=== PATIENT | female | born 1950 | race Caucasian/White ===

== ENCOUNTER 2017-05-15 18:13 | Inpatient (IN) | payer MEDICARE ==
[~2017-05-15] VITALS: Ht 152.4 cm; Wt 40.0 kg
[~2017-05-15 18:13] MED LIST: BENZ1TAB PO; DIAZ5 PO; FOLI1 PO; LURA40 PO; METH2.5 PO; PROZ20CA11 PO; TRAZ100 PO
[2017-05-15 19:21] VITALS: BP 102/71; PULSE 102; RESP 18; TEMP 98.1; O2SAT 100
[2017-05-15] MEDS ORDERED: SODIUM CHLOR 0.9% 1000 ML INJ 1,000 ML IV SCH ×3 (19:26→21:41)
[2017-05-15] MEDS ORDERED: PROPARACAINE HCL 0.5% OPHT SOLN 15 ML BTL EACH EYE ONE (19:30)
[2017-05-15] MEDS ORDERED: ONDANSETRON HCL 4 MG/2 ML VIAL IVP ONE (19:30)
[2017-05-15 19:42] VITALS: O2SAT 100
--- NOTE | 2017-05-15 19:45 | PD ---
HPI Chief Complaint: Abdominal Pain Time Seen by Provider: 19:25 Travel History International Travel<30 days: No Contact w/Intl Traveler<30days: No Traveled to known affect area: No History of Present Illness HPI 66-year-old female that presents to the ED via via ambulance for evaluation of hypotension and diarrhea as well as lower abdominal pain. Patient has had this for 3 weeks. Per patient she was sent to [facility] about 2 weeks ago and was released. She was told that she had colitis and she was given medications. Patient herself does not know what medication she was given and states that they're on the "list". She resides at an [facility]. She does have a significant history of anxiety as well as anorexia nervosa. She states the symptoms have not improved. She denies any lightheadedness or dizziness. Per patient she has been having also pain and discomfort to her right eye. Per patient she thinks that he has conjunctivitis. She states that she has some blurry vision as well with it. Denies any head injury or trauma. This is been going on for about a day. Patient follows with Dr. Pizarro. She is not really sure if she has follow-up with him outpatient. She states that her pain is 4 out of 10. On exam she is very anxious and asked for water and clothes. PFSH Past Medical History Arthritis: Yes Autoimmune Disease: Yes (RA) Bipolar Disorder: Yes Anxiety: Yes Depression: Yes Cancer: No Cardiovascular Problems: No Diabetes: No Diminished Hearing: No Endocrine: No Gastrointestinal Disorders: Yes (REFLUX) GERD: Yes Genitourinary: No Hepatitis: No Hiatal Hernia: No Hypertension: Yes Immune Disorder: No Musculoskeletal: Yes (ARTHRITIS) Neurologic: No Psychiatric: Yes Reproductive: No Respiratory: No Immunizations Current: Yes Migraines: Yes Schizophrenia: Yes Sickle Cell Disease: No Thyroid Disease: No ?: Not Menopausal: Yes : 1 Para: 0 Miscarriage: 1 Past Surgical History Abdominal Surgery: Yes (ABD. SX.?) AICD: No Gynecologic Surgery: Yes (VAG. PROLAPSE,) Hysterectomy: Yes Joint Replacement: No Neurologic Surgery: No Pacemaker: No Tonsillectomy: Yes Other Surgery: Yes (LYMPHADECTOMY IN 2007) Social History Alcohol Use: No Tobacco Use: No Substance Use: No Allergies-Medications (Allergen,Severity, Reaction): Coded Allergies: Sulfa (Sulfonamide Antibiotics) (Unverified Allergy, Severe, Itching, 03/31) prochlorperazine (Unverified Allergy, Severe, Restlessness, 03/31/17) acetaminophen (Unverified Allergy, Mild, NAUSEA, 03/31/17) aspirin (Unverified Allergy, Mild, NAUSEA, 03/31/17) oxycodone (Unverified Allergy, Mild, NAUSEA, 03/31/17) shellfish derived (Unverified Allergy, Unknown, 03/31/17) Reported Meds & Prescriptions Reported Meds & Active Scripts Active Reported Questran (Cholestyramine) 4 Gm/Dose Powd 4 Gm PO TID 1 level scoopful of powder contains 4 grams of cholestyramine. Apriso (Mesalamine) 0.375 Gm Caper 1.5 Gm PO DAILY Sertraline (Sertraline HCl) 50 Mg Tab 50 Mg PO DAILY Trazodone (Trazodone HCl) 50 Mg Tab 50 Mg PO HS Sumatriptan (Sumatriptan Succinate) 25 Mg Tab 25 Mg PO DAILY PRN If a satisfactory response has not been obtained at 2 hours, a second dose may be administered Ondansetron (Ondansetron HCl) 8 Mg Tab 4 Mg PO QID PRN Seroquel (Quetiapine Fumarate) 100 Mg Tab 100 Mg PO TID Naproxen 250 Mg Tab 250 Mg PO BID Mirtazapine 15 Mg Tab 15 Mg PO HS Folic Acid 0.8 Mg Tab 1,000 Mcg PO DAILY Diazepam 10 Mg Tab 10 Mg PO BID PRN Alendronate (Alendronate Sodium) 70 Mg Tab 70 Mg PO Q7D Tylenol (Acetaminophen) 325 Mg Tab 1,000 Mg PO BID PRN Review of Systems Except as stated in HPI: all other systems reviewed are Neg Physical Exam Narrative GENERAL: SKIN: Warm and dry. HEAD: Atraumatic. Normocephalic. EYES: Pupils equal and round 4 mm right-sided accommodation. Patient has conjunctival erythema noted as well as discharge coming from the right eye. No scleral icterus. No injection or drainage. ENT: No nasal bleeding or discharge. Mucous membranes pink and moist. Tongue is midline. No uvula deviation. NECK: Trachea midline. No JVD. CARDIOVASCULAR: Regular rate and rhythm. No murmurs, S3, S4. RESPIRATORY: No accessory muscle use. Clear to auscultation. Breath sounds equal bilaterally. GASTROINTESTINAL: Abdomen soft, non-tender, nondistended. Hepatic and splenic margins not palpable. MUSCULOSKELETAL: Extremities without clubbing, cyanosis, or edema. No obvious deformities. Full range of motion of the upper and lower extremities bilaterally. 2+ pulses bilaterally. NEUROLOGICAL: Awake and alert. No obvious cranial nerve deficits. Motor grossly within normal limits. Five out of 5 muscle strength in the arms and legs. Normal speech. PSYCHIATRIC: Appropriate mood and affect; insight and judgment normal. Data Data Last Documented VS Vital Signs Date Time Temp Pulse Resp B/P (MAP) Pulse Ox O2 Delivery O2 Flow Rate FiO2 05/15/17 19:42 100 Room Air 05/15/17 19:21 98.1 102 18 102/71 (81) Orders Orders Proparacaine 0.5% Opth Soln (Alcaine 0.5 (05/15/17 19:30) Complete Blood Count With Diff (05/15/17 19:26) Comprehensive Metabolic Panel (05/15/17 19:26) Lipase (05/15/17 19:26) Lactic Acid (05/15/17 19:26) Prothrombin Time / Inr (Pt) (05/15/17 19:26) Act Partial Throm Time (Ptt) (05/15/17 19:26) Urinalysis - C+S If Indicated (05/15/17 19:26) Iv Access Insert/Monitor (05/15/17 19:26) Ecg Monitoring (05/15/17 19:26) Oximetry (05/15/17 19:26) Ondansetron Inj (Zofran Inj) (05/15/17 19:30) Sodium Chlor 0.9% 1000 Ml Inj (Ns 1000 M (05/15/17 19:26) C Diff Toxin Pcr (05/15/17 19:33) Sodium Chlor 0.9% 1000 Ml Inj (Ns 1000 M (05/15/17 20:52) Metronidazole 500 Mg Inj (Flagyl 500 Mg (05/15/17 21:30) Labs Laboratory Tests Test 05/15/17 19:40 05/15/17 21:00 White Blood Count 7.4 TH/MM3 Red Blood Count 4.19 MIL/MM3 Hemoglobin 12.4 GM/DL Hematocrit 37.0 % Mean Corpuscular Volume 88.5 FL Mean Corpuscular Hemoglobin 29.5 PG Mean Corpuscular Hemoglobin Concent 33.4 % Red Cell Distribution Width 13.3 % Platelet Count 536 TH/MM3 Mean Platelet Volume 7.2 FL Neutrophils (%) (Auto) 60.4 % Lymphocytes (%) (Auto) 21.7 % Monocytes (%) (Auto) 13.6 % Eosinophils (%) (Auto) 3.3 % Basophils (%) (Auto) 1.0 % Neutrophils # (Auto) 4.5 TH/MM3 Lymphocytes # (Auto) 1.6 TH/MM3 Monocytes # (Auto) 1.0 TH/MM3 Eosinophils # (Auto) 0.2 TH/MM3 Basophils # (Auto) 0.1 TH/MM3 CBC Comment DIFF FINAL Differential Comment Prothrombin Time 10.8 SEC Prothromb Time International Ratio 1.0 RATIO Activated Partial Thromboplast Time 28.7 SEC Blood Urea Nitrogen 44 MG/DL Creatinine 1.84 MG/DL Random Glucose 94 MG/DL Total Protein 8.5 GM/DL Albumin 4.4 GM/DL Calcium Level 9.7 MG/DL Alkaline Phosphatase 114 U/L Aspartate Amino Transf (AST/SGOT) 30 U/L Alanine Aminotransferase (ALT/SGPT) 16 U/L Total Bilirubin 0.4 MG/DL Sodium Level 127 MEQ/L Potassium Level 3.7 MEQ/L Chloride Level 96 MEQ/L Carbon Dioxide Level 22.4 MEQ/L Anion Gap 9 MEQ/L Estimat Glomerular Filtration Rate 27 ML/MIN Lactic Acid Level 0.9 mmol/L Lipase 96 U/L MDM Medical Decision Making Medical Screen Exam Complete: Yes Emergency Medical Condition: Yes Medical Record Reviewed: Yes Interpretation(s) CBC & BMP Diagram 05/15/17 19:40 Total Protein 8.5 H, Albumin 4.4, Calcium Level 9.7, Alkaline Phosphatase 114, Aspartate Amino Transf (AST/SGOT) 30, Alanine Aminotransferase (ALT/SGPT) 16, Total Bilirubin 0.4 coags WNL Differential Diagnosis Conjunctivitis versus glaucoma versus viral illness versus diarrhea versus C. difficile versus hypotension versus anxiety Narrative Course 66-year-old female that presents to the ED for evaluation of abdominal pain with diarrhea as well as right eye discomfort. Patient was properly examined and was found to have signs and symptoms consistent with possible conjunctivitis. Unclear of the diarrhea. Possible C. difficile. Patient does reside in an [place]. I have requested the records from [facility]. Labs were ordered. Patient is given IV fluids. Labs and imaging showed acute kidney injury. I was able to get the report from [facility] and she had a CAT scan that showed possible obstruction but was found to not have an obstruction. Patient at the time refuse colonoscopy secondary to having a procedure done to her rectum and was told by her rectal surgeon that she cannot have any colonoscopies. She was discharged home. Labs here did show what appears to be acute kidney injury versus her BUN and creatinine drastically changed from April 28 at [facility]. BUN was 14 and creatinine was 0.69 on that day. Here he has drastically increased. Patient was given IV fluids. Patient is started on Flagyl for possible infectious colitis. Patient will be admitted to the hospital. My attending Dr. Adame evaluated the patient with me and agrees with plan. Case discussed with Dr. Rivera who agrees to admission. Diagnosis Primary Impression: Acute kidney injury Additional Impressions: Conjunctivitis Qualified Codes: B30.9 - Viral conjunctivitis, unspecified Diarrhea Qualified Codes: A09 - Infectious gastroenteritis and colitis, unspecified Admitting Information Admitting Physician Requests: Admit Nando Flaherty May 15, 2017 19:45
[2017-05-15 20:05] LABS: AUTOMATED NEUTROPHIL # 4.5 TH/MM3 (1.8-7.7); BASOPHIL # 0.1 TH/MM3 (0-0.2); EOSINOPHIL # 0.2 TH/MM3 (0-0.4); EOSINOPHIL % 3.3 % (0.0-4.0); HEMO FLAGS DIFF FINAL; LYMPH % 21.7 % (9.0-44.0); LYMPHOCYTE # 1.6 TH/MM3 (1.0-4.8); MEAN CELL VOLUME 88.5 FL (80.0-100.0); MEAN CORPUSCULAR HEMOGLOBIN 29.5 PG (27.0-34.0); MEAN CORPUSCULAR HGB CONC 33.4 % (32.0-36.0); MONO % 13.6 % (0.0-8.0); NEUT % 60.4 % (16.0-70.0); PLATELET COUNT 536 TH/MM3 (150-450); RED BLOOD COUNT 4.19 MIL/MM3 (4.00-5.30); RED CELL DISTRIBUTION WIDTH 13.3 % (11.6-17.2); WHITE BLOOD COUNT 7.4 TH/MM3 (4.0-11.0)
[2017-05-15 20:17] LABS: ALT (GPT) 16 U/L (10-53)
[2017-05-15 20:19] LABS: ALKALINE PHOSPHATASE 114 U/L (45-117); TOTAL BILIRUBIN ADULT 0.4 MG/DL (0.2-1.0)
[2017-05-15 20:26] LABS: ANION GAP 9 MEQ/L (5-15); AST (GOT) 30 U/L (15-37); BICARBONATE 22.4 MEQ/L (21.0-32.0); BLOOD UREA NITROGEN 44 MG/DL (7-18); CHLORIDE 96 MEQ/L (98-107); GLOMERULAR FILTRATION RATE 27 ML/MIN (>89); POTASSIUM 3.7 MEQ/L (3.5-5.1); SODIUM (NA) 127 MEQ/L (136-145)
[2017-05-15 20:30] LABS: APTT (PATIENT) 28.7 SEC (24.3-30.1); PROTHROMBIN TIME - PATIENT 10.8 SEC (9.8-11.6)
[2017-05-15] MEDS ORDERED: TYLE325T PO (20:53)
[2017-05-15] MEDS ORDERED: DIAZ10TA PO (20:53)
[2017-05-15] MEDS ORDERED: APRI0.372 PO (20:53)
[2017-05-15] MEDS ORDERED: NAPR250T PO (20:53)
[2017-05-15] MEDS ORDERED: SERT-132 PO (20:53)
[2017-05-15] MEDS ORDERED: SUMA25TA2 PO (20:53)
[2017-05-15] MEDS ORDERED: ONDA1TAB17 PO (20:53)
[2017-05-15] MEDS ORDERED: FOLI800T PO (20:53)
[2017-05-15] MEDS ORDERED: TRAZ50TA12 PO (20:53)
[2017-05-15] MEDS ORDERED: ALEN1TAB48 PO (20:53)
[2017-05-15] MEDS ORDERED: SERO100T PO (20:53)
[2017-05-15] MEDS ORDERED: QUES4POW2 PO (20:53)
[2017-05-15] MEDS ORDERED: MIRTA15 PO (20:53)
[2017-05-15] MEDS ORDERED: metroNIDAZOLE 500 MG INJ 100 ML IV ONE (21:30)
[2017-05-15] MEDS ORDERED: SODIUM CHLORIDE 0.9% FLUSH 10 ML FLUSH IV FLUSH PRN (21:45)
[2017-05-15] MEDS ORDERED: SENNOSIDES 8.6 MG TAB PO PRN (21:45)
[2017-05-15] MEDS ORDERED: MAGNESIUM HYDROXIDE SUSP 30 ML CUP PO PRN (21:45)
[2017-05-15] MEDS ORDERED: MORPHINE SULFATE 4 MG/ML INJ IV PUSH PRN ×2 (21:45)
[2017-05-15] MEDS ORDERED: LACTULOSE SYRUP 20 GM/30 ML CUP PO PRN (21:45)
[2017-05-15] MEDS ORDERED: BISACODYL 10 MG SUPP RECTAL PRN (21:45)
--- NOTE | 2017-05-15 21:49 | HHI.HP ---
[facility] Service [facility] Primary Care Physician Jenaro Pizarro MD Admission Diagnosis acute kidney injury, diarrhea, conjunctivitis Diagnoses: (1) Diarrhea Diagnosis: Principal (2) HARISH (acute kidney injury) Diagnosis: Principal (3) Hyponatremia Diagnosis: Principal (4) Anxiety Diagnosis: Principal (5) Conjunctivitis Diagnosis: Principal Travel History International Travel<30 Days: No Contact w/Intl Traveler <30 Da: No Traveled to Known Affected Are: No History of Present Illness This is a 66-year-old female with a PMH of Anxiety, Depression, Bipolar Disorder , Anorexia Nervosa, Rheumatoid Arthritis, GERD and Migraines who was sent to the ER from [facility] secondary to diarrhea x3 wks. Admitted to [facility] approx 2wks ago for similar symptoms, C Diff negative at that time, was to undergo EGD/ Colonoscopy however pt declined due to rectal prolapse s/p repair. Reports ongoing diarrhea w/ occasional nausea/vomiting. Decreased PO intake due to symptoms. Denies fever, chills or sick contacts. On arrival, BP 102/71, HR 102 , O2 sat 100% on RA, Afebrile. CBC essentially unremarkable. Na 127. Creatinine 1.84, produces 0.84 on 02/08/16. Per review of records, Creatinine 0.69 on 04/28/17 during recent admit. INR 1.0. S/p IVF and Flagyl IV in ER. C Diff pending. Review of Systems Except as stated in HPI: all other systems reviewed are Neg ROS: 14 point review of systems otherwise negative. Past Family Social History Past Medical History PMH: Anxiety, Depression, Bipolar Disorder, Anorexia Nervosa, Rheumatoid Arthritis, GERD and Migraines Past Surgical History PAST SURGICAL HISTORY: Abdominal Surgery, Hysterectomy, Vaginal Prolapse Bere Rectal Prolapse, Tonsillectomy Allergies: Coded Allergies: Sulfa (Sulfonamide Antibiotics) (Unverified Allergy, Severe, Itching, 03/31) prochlorperazine (Unverified Allergy, Severe, Restlessness, 03/31/17) acetaminophen (Unverified Allergy, Mild, NAUSEA, 03/31/17) aspirin (Unverified Allergy, Mild, NAUSEA, 03/31/17) oxycodone (Unverified Allergy, Mild, NAUSEA, 03/31/17) shellfish derived (Unverified Allergy, Unknown, 03/31/17) Family History PAST FAMILY HISTORY: Reviewed. No h/o DM or CAD Social History PAST SOCIAL HISTORY: Negative for alcohol, tobacco or drugs. Physical Exam Vital Signs Vital Signs Date Time Temp Pulse Resp B/P (MAP) Pulse Ox O2 Delivery O2 Flow Rate FiO2 05/15/17 19:42 100 Room Air 05/15/17 19:21 98.1 102 18 102/71 (81) 100 Physical Exam PE: GENERAL: Middle aged female in no acute distress, mildly anxious. HEENT: PERRLA, EOMI. No scleral icterus or conjunctival pallor. No lid lag or facial droop. Right eye drainage, +conjunctivitis. CARDIOVASCULAR: Regular rate and rhythm. No obvious murmurs to auscultation. No chest tenderness to palpation. RESPIRATORY: No obvious rhonchi or wheezing. Clear to auscultation. Breath sounds equal bilaterally. GASTROINTESTINAL: Abdomen soft, non-tender, nondistended. BS normal. MUSCULOSKELETAL: Extremities without clubbing, cyanosis, or edema. No obvious deformities. NEUROLOGICAL: Awake, alert and oriented x4. No focal neurologic deficits. Moving both upper and lower extremities spontaneously. Laboratory Laboratory Tests Test 05/15/17 19:40 05/15/17 21:00 White Blood Count 7.4 Red Blood Count 4.19 Hemoglobin 12.4 Hematocrit 37.0 Mean Corpuscular Volume 88.5 Mean Corpuscular Hemoglobin 29.5 Mean Corpuscular Hemoglobin Concent 33.4 Red Cell Distribution Width 13.3 Platelet Count 536 Mean Platelet Volume 7.2 Neutrophils (%) (Auto) 60.4 Lymphocytes (%) (Auto) 21.7 Monocytes (%) (Auto) 13.6 Eosinophils (%) (Auto) 3.3 Basophils (%) (Auto) 1.0 Neutrophils # (Auto) 4.5 Lymphocytes # (Auto) 1.6 Monocytes # (Auto) 1.0 Eosinophils # (Auto) 0.2 Basophils # (Auto) 0.1 CBC Comment DIFF FINAL Differential Comment Prothrombin Time 10.8 Prothromb Time International Ratio 1.0 Activated Partial Thromboplast Time 28.7 Blood Urea Nitrogen 44 Creatinine 1.84 Random Glucose 94 Total Protein 8.5 Albumin 4.4 Calcium Level 9.7 Alkaline Phosphatase 114 Aspartate Amino Transf (AST/SGOT) 30 Alanine Aminotransferase (ALT/SGPT) 16 Total Bilirubin 0.4 Sodium Level 127 Potassium Level 3.7 Chloride Level 96 Carbon Dioxide Level 22.4 Anion Gap 9 Estimat Glomerular Filtration Rate 27 Lactic Acid Level 0.9 Lipase 96 Result Diagram: 05/15/17193905/15/171939 Caprini VTE Risk Assessment Caprini VTE Risk Assessment: No/Low Risk (score <= 1) Caprini Risk Assessment Model Point Value = 1 Point Value = 2 Point Value = 3 Point Value = 5 Age 41-60 Minor surgery BMI > 25 kg/m2 Swollen legs Varicose veins or History of unexplained or recurrent spontaneous Oral contraceptives or hormone replacement Sepsis (< 1 month) Serious lung disease, including pneumonia (< 1 month) Abnormal pulmonary function Acute myocardial infarction Congestive heart failure (< 1 month) History of inflammatory bowel disease Medical patient at bed rest Age 61-74 Arthroscopic surgery Major open surgery (> 45 min) Laparoscopic surgery (> 45 min) Malignancy Confined to bed (> 72 hours) Immobilizing plaster cast Central venous access Age >= 75 History of VTE Family history of VTE Factor V Leiden Prothrombin [id number] Lupus anticoagulant Anticardiolipin antibodies Elevated serum homocysteine Heparin-induced thrombocytopenia Other congenital or acquired thrombophilia Stroke (< 1 month) Elective arthroplasty Hip, pelvis, or leg fracture Acute spinal cord injury (< 1 month) Prophylaxis Regimen Total Risk Factor Score Risk Level Prophylaxis Regimen 0-1 Low Early ambulation 2 Moderate Order ONE of the following: *Sequential Compression Device (SCD) *Heparin 5000 units SQ BID 3-4 Higher Order ONE of the following medications: *Heparin 5000 units SQ TID *Enoxaparin/Lovenox 40 mg SQ daily (WT < 150 kg, CrCl > 30 mL/min) *Enoxaparin/Lovenox 30 mg SQ daily (WT < 150 kg, CrCl > 10-29 mL/min) *Enoxaparin/Lovenox 30 mg SQ BID (WT < 150 kg, CrCl > 30 mL/min) AND/OR *Sequential Compression Device (SCD) 5 or more Highest Order ONE of the following medications: *Heparin 5000 units SQ TID (Preferred with Epidurals) *Enoxaparin/Lovenox 40 mg SQ daily (WT < 150 kg, CrCl > 30 mL/min) *Enoxaparin/Lovenox 30 mg SQ daily (WT < 150 kg, CrCl > 10-29 mL/min) *Enoxaparin/Lovenox 30 mg SQ BID (WT < 150 kg, CrCl > 30 mL/min) AND *Sequential Compression Device (SCD) Assessment and Plan Problem List: (1) Diarrhea ICD Code: R19.7 - Diarrhea, unspecified Status: Acute (2) HARISH (acute kidney injury) ICD Code: N17.9 - Acute kidney failure, unspecified (3) Hyponatremia ICD Code: E87.1 - Hypo-osmolality and hyponatremia (4) Anxiety ICD Code: F41.9 - Anxiety Status: Acute (5) Conjunctivitis ICD Code: H10.9 - Unspecified conjunctivitis Status: Acute Assessment and Plan A/P: 1. Diarrhea: ongoing symptoms x3 wks, recent admit to [facility] for same w/ essentially negative work up. C diff pending, check Stool Culture/WBC. S/p Flagyl in ER, continue w/ empiric treatment. Consult GI for further recommendations. 2. HARISH: secondary to dehydration from decreased PO intake and diarrhea. Creatinine 1.84, previously 0.84 on 02/08/16, 0.69 on 04/28/17 per records. U/ a pending. IVF for hydration, repeat labs in am. 3. Hyponatremia: Na 127, likely secondary to dehydration. IVF, repeat labs. 4. Anxiety: h/o Anxiety, Ativan prn. 5. Conjunctivitis: Cipro opth gtts. 6. DVT Prophylaxis: SCD/Teds. 7. Social work for d/c planning as needed. 8. Case discussed w/ ER physician at length. Physician Certification 2 Midnight Certification Type: Admission for Inpatient Services Order for Inpatient Services The services are ordered in accordance with Medicare regulations or non- Medicare payer requirements, as applicable. In the case of services not specified as inpatient-only, they are appropriately provided as inpatient services in accordance with the 2-midnight benchmark. Estimated LOS (days): 2 days is the estimated time the patient will need to remain in the hospital, assuming treatment plan goals are met and no additional complications. Post-Hospital Plan: Not yet determined Problem Qualifiers (1) Diarrhea: Qualified Codes: A09 - Infectious gastroenteritis and colitis, unspecified (2) Conjunctivitis: Qualified Codes: B30.9 - Viral conjunctivitis, unspecified Autumn Rivera MD May 15, 2017 21:49
[2017-05-15 22:33] LABS: C. DIFF EPI 027 PRESUMPTIVE NEGATIVE (NEGATIVE)
[2017-05-15 23:00] VITALS: BP 108/57; PULSE 78; RESP 16; O2SAT 100
[2017-05-15] MEDS: CIPROFLOXACIN 400 MG PREMIX 200 ML IV SCH (23:34)
[2017-05-16] VITALS (7 sets, daily range): BP systolic 98–119; BP diastolic 52–74; PULSE 86–110; RESP 17–19; TEMP 95.4–97; O2SAT 95–100
[2017-05-16] MEDS: CIPROFLOXACIN 0.3% OPTH SOLN 2.5 ML BTL EACH EYE SCH ×7 (00:50→23:15)
[2017-05-16] MEDS: metroNIDAZOLE 500 MG INJ 100 ML IV SCH ×3 (04:51→20:56)
[2017-05-16 07:53] LABS: AUTOMATED NEUTROPHIL # 3.8 TH/MM3 (1.8-7.7); BASOPHIL # 0.1 TH/MM3 (0-0.2); BASOPHIL % 1.3 % (0.0-2.0); EOSINOPHIL # 0.3 TH/MM3 (0-0.4); EOSINOPHIL % 4.6 % (0.0-4.0); HEMATOCRIT 29.5 % (35.0-46.0); HEMO FLAGS DIFF FINAL; LYMPH % 17.7 % (9.0-44.0); LYMPHOCYTE # 1.1 TH/MM3 (1.0-4.8); MEAN CELL VOLUME 89.3 FL (80.0-100.0); MEAN CORPUSCULAR HGB CONC 33.6 % (32.0-36.0); MONO % 13.7 % (0.0-8.0); NEUT % 62.7 % (16.0-70.0); PLATELET COUNT 424 TH/MM3 (150-450); RED BLOOD COUNT 3.31 MIL/MM3 (4.00-5.30); RED CELL DISTRIBUTION WIDTH 13.7 % (11.6-17.2)
[2017-05-16 08:32] LABS: ALKALINE PHOSPHATASE 80 U/L (45-117); ALT (GPT) 12 U/L (10-53); ANION GAP 10 MEQ/L (5-15); AST (GOT) 12 U/L (15-37); BICARBONATE 20.8 MEQ/L (21.0-32.0); BLOOD UREA NITROGEN 25 MG/DL (7-18); CHLORIDE 107 MEQ/L (98-107); GLOMERULAR FILTRATION RATE 50 ML/MIN (>89); SODIUM (NA) 138 MEQ/L (136-145); TOTAL BILIRUBIN ADULT 0.3 MG/DL (0.2-1.0)
[2017-05-16 08:36] LABS: POTASSIUM 2.8 MEQ/L (3.5-5.1)
[2017-05-16] MEDS: SODIUM CHLORIDE 0.9% FLUSH 10 ML FLUSH IV FLUSH SCH ×2 (09:00→20:55)
[2017-05-16] MEDS: MESALAMINE PO SCH (09:00)
[2017-05-16] MEDS ORDERED: POTASSIUM CHLORIDE 10 MEQ CONTROLLED RELEASE TAB PO ONE (09:15)
--- NOTE | 2017-05-16 09:18 | HHI.PR ---
Subjective Remarks Patient seen this morning around 11 AM. She reports diarrhea continues. Reports diffuse abdominal pain continues unchanged. Continued nausea, without vomiting. Discussed with nursing. Objective Vital Signs Date Time Temp Pulse Resp B/P (MAP) Pulse Ox O2 Delivery O2 Flow Rate FiO2 05/16/17 08:00 96.8 90 17 115/65 (82) 95 05/16/17 04:00 96.1 87 18 115/53 (73) 96 05/16/17 00:00 95.4 86 18 98/63 (75) 98 05/15/17 23:40 05/15/17 23:00 78 16 108/57 (74) 100 Room Air 05/15/17 19:42 100 Room Air 05/15/17 19:21 98.1 102 18 102/71 (81) 100 I/O 05/15/17 05/15/17 05/15/17 05/16/17 05/16/17 05/16/17 07:00 15:00 23:00 07:00 15:00 23:00 Intake Total 1000 ml 1220 ml Output Total 700 ml Balance 1000 ml 520 ml Intake Oral 120 ml IV Total 1000 ml 1100 ml Output Urine Total 650 ml Stool Total 50 ml # Voids 4 # Bowel Movements 1 5 Result Diagram: 05/16/17 0652 05/16/17 0652 Objective Remarks GENERAL: patient lying in bed. Appears comfortable. SKIN: Warm and dry. HEAD: Normocephalic. EYES: No scleral icterus. No injection or drainage. NECK: Supple, trachea midline. No JVD. CARDIOVASCULAR: Regular rate and rhythm without murmurs, gallops, or rubs. RESPIRATORY: Breath sounds equal bilaterally. No accessory muscle use. GASTROINTESTINAL: Abdomen soft, nondistended. patient reports diffuse abdominal tenderness to moderate palpation. Does not appear severe. No rebound or guarding. MUSCULOSKELETAL: No cyanosis, or edema. BACK: Nontender without obvious deformity. No CVA tenderness. A/P Assessment and Plan ==== 05/16/17 //Hypokalemia. Potassium 2.8. Replace. Check magnesium. Within normal limits. // Diarrhea: ongoing symptoms x3 wks, recent admit to [facility] for same w/ essentially negative work up. C diff pending, check Stool Culture/WBC. S/p Flagyl in ER, continue w/ empiric treatment. Consult GI for further recommendations. -05/16. GI consult appreciated. C. difficile negative. Follow-up Giardia testing. // HARISH: secondary to dehydration from decreased PO intake and diarrhea. Creatinine 1.84 on admission, previously 0.84 on 02/08/16, 0.69 on 04/28/17 per records. U/a pending. -05/16 Creatinine 1.1. Improving // Hyponatremia: Na 127 on admission, likely secondary to dehydration. -05/16 Improved. Sodium 138. Switched to one half normal saline. // Anxiety: h/o Anxiety, Ativan prn. // Conjunctivitis: Continue Cipro opth gtts. //Hypokalemia. Potassium 2.8. Replace. Check magnesium. Within normal limits. // DVT Prophylaxis: SCD/Teds. Discharge Planning continue diarrhea GI following. Osmar Heard MD May 16, 2017 09:18
[2017-05-16] MEDS: QUEtiapine FUMARATE 100 MG TAB PO SCH ×3 (09:32→18:03)
[2017-05-16] MEDS: DOCUSATE SODIUM 50 MG/SENNA 8.6 MG TAB PO SCH ×2 (09:32→20:56)
[2017-05-16] MEDS: CIPROFLOXACIN 400 MG PREMIX 200 ML IV SCH ×2 (09:33→22:27)
[2017-05-16] MEDS: SERTRALINE HCL 50 MG TAB PO SCH (09:33)
[2017-05-16] MEDS: 1/2 NS + KCL 20 MEQ INJ 1,000 ML IV SCH ×2 (09:44→20:54)
[2017-05-16] MEDS: LOPERAMIDE HCL 2 MG CAP PO PRN ×2 (15:30→21:04)
[2017-05-16] MEDS: LORazepam 2 MG/ML VIAL IV PUSH PRN ×2 (15:30→23:14)
--- NOTE | 2017-05-16 16:47 | PD.CONS ---
HPI History of Present Illness This is a 66 year old female who presented to the ER from assisted living facility with c/o diarrhea x 3 weeks. She was admitted to [facility] about 2 weeks ago for similar symptoms. C diff was negative at that time. Patient was to undergo EGD/Colonoscopy at that time, but declined due to rectal prolapse s/p repair. Patient reports occasional nausea and vomiting. Has had decreased appetite and oral intake. Past medical history significant for anxiety , depression, bipolar disorder, anorexia nervosa, rheumatoid arthritis, GERD, and migraines.C diff negative on 05/15. (Esperanza Rahman) PFSH Past Medical History Anxiety Depression Bipolar Disorder Anorexia Nervosa Rheumatoid Arthritis GERD Migraines Past Surgical History Abdominal Surgery Hysterectomy Vaginal Prolapse Bere Rectal Prolapse Tonsillectomy (Esperanza Rahman) Coded Allergies: Sulfa (Sulfonamide Antibiotics) (Unverified Allergy, Severe, Itching, 03/31) prochlorperazine (Unverified Allergy, Severe, Restlessness, 03/31/17) acetaminophen (Unverified Allergy, Mild, NAUSEA, 03/31/17) aspirin (Unverified Allergy, Mild, NAUSEA, 03/31/17) oxycodone (Unverified Allergy, Mild, NAUSEA, 03/31/17) shellfish derived (Unverified Allergy, Unknown, 03/31/17) Medications Current Medications Medications (Trade) Dose Ordered Sig/Linh Route PRN Reason Start Time Stop Time Status Last Admin Dose Admin Ciprofloxacin HCl (Ciloxan 0.3% Opth Soln) 1 drop Q4H EACH EYE 05/16/17 00:00 05/16/17 15:35 Lorazepam (Ativan Inj) 1 mg Q2H PRN IV PUSH ANXIETY/AGITATION 05/15/17 21:45 05/16/17 15:30 Sodium Chloride (NS Flush) 2 ml UNSCH PRN IV FLUSH FLUSH AFTER USING IV ACCESS 05/15/17 21:45 Sodium Chloride (NS Flush) 2 ml BID IV FLUSH 05/16/17 09:00 Ondansetron HCl (Zofran Inj) 4 mg Q6H PRN IVP NAUSEA OR VOMITING 05/15/17 21:45 Morphine Sulfate (Morphine Inj) 1 mg Q3H PRN IV PUSH Pain 3-5 05/15/17 21:45 Morphine Sulfate (Morphine Inj) 2 mg Q3H PRN IV PUSH Pain 6-10 05/15/17 21:45 Senna/Docusate Sodium (Catrina-Colace) 1 tab BID PO 05/16/17 09:00 05/16/17 09:32 Magnesium Hydroxide (Milk Of Magnesia Liq) 30 ml Q12H PRN PO MILD - MODERATE CONSTIPATION 05/15/17 21:45 Sennosides (Senokot) 17.2 mg Q12H PRN PO MODERATE - SEVERE CONSTIPATION 05/15/17 21:45 Bisacodyl (Dulcolax Supp) 10 mg DAILY PRN RECTAL SEVERE CONSITIPATION 05/15/17 21:45 Lactulose (Lactulose Liq) 30 ml DAILY PRN PO SEVERE CONSITIPATION 05/15/17 21:45 Mirtazapine (Remeron) 15 mg HS PO 05/16/17 21:00 Quetiapine Fumarate (SEROquel) 100 mg TID PO 05/16/17 09:00 05/16/17 13:02 Sertraline HCl (Zoloft) 50 mg DAILY PO 05/16/17 09:00 05/16/17 09:33 Trazodone HCl (Desyrel) 50 mg HS PO 05/16/17 21:00 Patient Own Medication PT OWN MED: NOV... DAILY PO 05/16/17 09:00 Metronidazole 100 ml @ 100 mls/hr Q8H IV 05/16/17 06:00 05/16/17 13:03 Ciprofloxacin/ Dextrose 200 ml @ 200 mls/hr Q12H IV 05/15/17 23:00 05/16/17 09:33 Loperamide HCl (Imodium) 2 mg Q4H PRN PO DIARRHEA 05/15/17 23:00 05/16/17 15:30 Potassium Chloride/Sodium Chloride 1,000 ml @ 84 mls/hr [id number] IV 05/16/17 09:15 05/16/17 09:44 Family History Noncontributory Social History ETOH, denies Tobacco, denies Illicit Drugs, denies (Esperanza Rahman) Review of Systems Constitutional: COMPLAINS OF: Weight loss, Change in appetite, DENIES: Diaphoretic episodes, Fatigue, Fever, Weight gain, Chills, Dizziness, Night Sweats Endocrine: DENIES: Polydipsia, Polyuria Eyes: DENIES: Blurred vision, Photosensitivity, Double Vision Ears, nose, mouth, throat: DENIES: Hearing loss, Vertigo, Oral lesions, Throat pain, Hoarseness Respiratory: DENIES: Cough, Wheezing, Hemoptysis, Sputum production, Shortness of breath Cardiovascular: DENIES: Chest pain, Palpitations, Syncope, Lower Extremity Edema, Orthopnea, Claudication Gastrointestinal: COMPLAINS OF: Abdominal pain, Diarrhea, Nausea, Vomiting, DENIES: Black stools, Bloody stools, Constipation, Difficulty Swallowing, Anorexia, Odynophagia, Swelling of Abdomen, Heartburn, Hematemesis Genitourinary: DENIES: Urinary frequency, Urinary incontinence, Urgency, Hematuria, Dysuria, Nocturia Musculoskeletal: DENIES: Joint pain, Muscle aches, Stiffness, Joint Swelling, Back pain, Neck pain Integumentary: DENIES: Abnormal pigmentation, Nail changes, Pruritus, Rash, Jaundice Hematologic/lymphatic: DENIES: Bruising, Lymphadenopathy Immunologic/allergic: DENIES: Eczema, Urticaria Neurologic: DENIES: Abnormal gait, Headache, Localized weakness, Paresthesias Psychiatric: DENIES: Anxiety, Confusion, Mood changes, Depression, Agitation, Suicidal Ideation (Esperanza Rahman) GI Exam Vitals I&O Vital Signs Date Time Temp Pulse Resp B/P (MAP) Pulse Ox O2 Delivery O2 Flow Rate FiO2 05/16/17 12:00 96.3 92 18 101/63 (76) 97 05/16/17 08:00 96.8 90 17 115/65 (82) 95 05/16/17 04:00 96.1 87 18 115/53 (73) 96 05/16/17 00:00 95.4 86 18 98/63 (75) 98 05/15/17 23:40 05/15/17 23:00 78 16 108/57 (74) 100 Room Air 05/15/17 19:42 100 Room Air 05/15/17 19:21 98.1 102 18 102/71 (81) 100 I/O 05/15/17 05/15/17 05/15/17 05/16/17 05/16/17 05/16/17 07:00 15:00 23:00 07:00 15:00 23:00 Intake Total 1000 ml 1220 ml 372 ml 300 ml Output Total 700 ml Balance 1000 ml 520 ml 372 ml 300 ml Intake Oral 120 ml IV Total 1000 ml 1100 ml 372 ml 300 ml Output Urine Total 650 ml Stool Total 50 ml # Voids 4 # Bowel Movements 1 5 Laboratory Test 05/15/17 19:40 05/15/17 21:00 05/16/17 06:52 White Blood Count 7.4 TH/MM3 6.0 TH/MM3 Red Blood Count 4.19 MIL/MM3 3.31 MIL/MM3 Hemoglobin 12.4 GM/DL 9.9 GM/DL Hematocrit 37.0 % 29.5 % Mean Corpuscular Volume 88.5 FL 89.3 FL Mean Corpuscular Hemoglobin 29.5 PG 30.0 PG Mean Corpuscular Hemoglobin Concent 33.4 % 33.6 % Red Cell Distribution Width 13.3 % 13.7 % Platelet Count 536 TH/MM3 424 TH/MM3 Mean Platelet Volume 7.2 FL 7.7 FL Neutrophils (%) (Auto) 60.4 % 62.7 % Lymphocytes (%) (Auto) 21.7 % 17.7 % Monocytes (%) (Auto) 13.6 % 13.7 % Eosinophils (%) (Auto) 3.3 % 4.6 % Basophils (%) (Auto) 1.0 % 1.3 % Neutrophils # (Auto) 4.5 TH/MM3 3.8 TH/MM3 Lymphocytes # (Auto) 1.6 TH/MM3 1.1 TH/MM3 Monocytes # (Auto) 1.0 TH/MM3 0.8 TH/MM3 Eosinophils # (Auto) 0.2 TH/MM3 0.3 TH/MM3 Basophils # (Auto) 0.1 TH/MM3 0.1 TH/MM3 CBC Comment DIFF FINAL DIFF FINAL Differential Comment Prothrombin Time 10.8 SEC Prothromb Time International Ratio 1.0 RATIO Activated Partial Thromboplast Time 28.7 SEC Blood Urea Nitrogen 44 MG/DL 25 MG/DL Creatinine 1.84 MG/DL 1.10 MG/DL Random Glucose 94 MG/DL 86 MG/DL Total Protein 8.5 GM/DL 6.2 GM/DL Albumin 4.4 GM/DL 3.1 GM/DL Calcium Level 9.7 MG/DL 8.2 MG/DL Alkaline Phosphatase 114 U/L 80 U/L Aspartate Amino Transf (AST/SGOT) 30 U/L 12 U/L Alanine Aminotransferase (ALT/SGPT) 16 U/L 12 U/L Total Bilirubin 0.4 MG/DL 0.3 MG/DL Sodium Level 127 MEQ/L 138 MEQ/L Potassium Level 3.7 MEQ/L 2.8 MEQ/L Chloride Level 96 MEQ/L 107 MEQ/L Carbon Dioxide Level 22.4 MEQ/L 20.8 MEQ/L Anion Gap 9 MEQ/L 10 MEQ/L Estimat Glomerular Filtration Rate 27 ML/MIN 50 ML/MIN Lactic Acid Level 0.9 mmol/L Lipase 96 U/L Stool C. difficile Toxin (PCR) NEGATIVE Stl C. difficile Toxin Epiderm 027 PRESUMPTIVE NEGATIVE Magnesium Level 2.1 MG/DL Date/Time Source Procedure Growth Status 05/15/17 21:00 Stool Stool Cryptosporidium Exam Pending Received 05/15/17 21:00 Stool Stool Giardia Antigen (CINDY) Pending Received Physical Examination HEENT: Normocephalic; atraumatic; no jaundice. NECK: Neck is supple CHEST: CTA CARDIAC: RRR with no murmur gallop or rubs. ABDOMEN: Soft, nondistended, nontender; no hepatosplenomegaly; bowel sounds are present EXTREMITIES: No clubbing, cyanosis, or edema. SKIN: Normal; no rash; no jaundice. APARTMENT ASSISTANT MANAGER: No focal deficits; alert and oriented x 3 (Esperanza Rahman) Assessment and Plan Plan ASSESSMENT: - Diarrhea, ongoing x 3 weeks. C diff negative (05/15). Cryptosporidium and Giardia pending. Stool sample pending. Patient is refusing EGD/Colonoscopy. WBC 6. - Anemia, no active bleeding noted. HH 9.9/29.5 (05/16) from 12.4/37 (05/15). Check Hemoccult. - Hypokalemia, most likely secondary to diarrhea. K 2.8 (05/16). Being replaced per attending. PLAN: - Hemoccult x 3 - Monitor labs - Monitor HH, transfuse as necessary - Monitor stool output - Patient is refusing EGD/Colonoscopy - Supportive care - Further recommendations to follow based on results of above Patient seen and examined by Dr. Granados and myself and this note is written on his behalf. (KuEsperanza thapa) Plan Patient was seen and examined, agree with above note, await for lab, we will try to obtain records from [facility] ([place] and [facility], she does not want to have any procedure done (Arnoldo Granados MD) Esperanza Rahman May 16, 2017 16:47 Arnoldo Granados MD May 16, 2017 21:01
[2017-05-16] MEDS: traZODone HCL 50 MG TAB PO SCH (20:56)
[2017-05-16] MEDS: MIRTAZAPINE 15 MG TAB PO SCH (20:56)
[2017-05-17] VITALS (9 sets, daily range): BP systolic 92–121; BP diastolic 54–62; PULSE 81–103; RESP 16–18; TEMP 96–97.8; O2SAT 95–100
[2017-05-17] MEDS: CIPROFLOXACIN 0.3% OPTH SOLN 2.5 ML BTL EACH EYE SCH ×5 (02:55→20:51)
[2017-05-17] MEDS: metroNIDAZOLE 500 MG INJ 100 ML IV SCH ×3 (04:48→20:51)
[2017-05-17 07:08] LABS: AUTOMATED NEUTROPHIL # 3.7 TH/MM3 (1.8-7.7); BASOPHIL # 0.1 TH/MM3 (0-0.2); BASOPHIL % 2.1 % (0.0-2.0); EOSINOPHIL # 0.4 TH/MM3 (0-0.4); EOSINOPHIL % 5.7 % (0.0-4.0); HEMATOCRIT 28.2 % (35.0-46.0); HEMO FLAGS DIFF FINAL; LYMPHOCYTE # 1.4 TH/MM3 (1.0-4.8); MEAN CELL VOLUME 88.8 FL (80.0-100.0); MEAN CORPUSCULAR HEMOGLOBIN 30.1 PG (27.0-34.0); MEAN CORPUSCULAR HGB CONC 33.9 % (32.0-36.0); MONO % 11.1 % (0.0-8.0); NEUT % 59.1 % (16.0-70.0); PLATELET COUNT 423 TH/MM3 (150-450); RED BLOOD COUNT 3.17 MIL/MM3 (4.00-5.30); RED CELL DISTRIBUTION WIDTH 13.3 % (11.6-17.2); WHITE BLOOD COUNT 6.2 TH/MM3 (4.0-11.0)
[2017-05-17 07:26] LABS: BICARBONATE 22.8 MEQ/L (21.0-32.0); MAGNESIUM 1.9 MG/DL (1.5-2.5); POTASSIUM 3.5 MEQ/L (3.5-5.1)
[2017-05-17] MEDS: DOCUSATE SODIUM 50 MG/SENNA 8.6 MG TAB PO SCH (09:00)
[2017-05-17] MEDS: SODIUM CHLORIDE 0.9% FLUSH 10 ML FLUSH IV FLUSH SCH ×2 (09:00→20:50)
[2017-05-17] MEDS: MESALAMINE PO SCH (09:00)
[2017-05-17] MEDS: 1/2 NS + KCL 20 MEQ INJ 1,000 ML IV SCH ×3 (09:05→20:50)
[2017-05-17] MEDS: SERTRALINE HCL 50 MG TAB PO SCH (09:23)
[2017-05-17] MEDS: QUEtiapine FUMARATE 100 MG TAB PO SCH ×3 (09:24→16:43)
[2017-05-17] MEDS: CIPROFLOXACIN 400 MG PREMIX 200 ML IV SCH (09:25)
[2017-05-17] MEDS: ONDANSETRON HCL 4 MG/2 ML VIAL IVP PRN ×2 (10:39→20:54)
--- NOTE | 2017-05-17 11:00 | HHI.GIFU ---
Subjective Remarks Resting in bed. Nausea without vomiting. States she probably had 25 loose stools yesterday, only one so far today. States that she was told by Dr. Ramos that she could not have colonoscopy secondary to rectal prolapse repair by Dr. Ramos 3 years ago. She was hospitalized recently at [facility] and evaluated by our service at that time. CDiff was negative. Endoscopic evaluation was recommended, but she refused at that time as well. (Aaliyah Kay) Objective Vitals I&O Vital Signs Date Time Temp Pulse Resp B/P (MAP) Pulse Ox O2 Delivery O2 Flow Rate FiO2 05/17/17 08:00 97.8 85 16 103/56 (72) 97 05/17/17 04:55 96.6 81 18 93/55 (68) 100 05/17/17 00:00 96.2 81 18 98/54 (69) 98 05/16/17 20:18 99 05/16/17 20:00 96.7 101 18 119/52 (74) 100 05/16/17 16:00 97.0 110 19 114/74 (87) 99 05/16/17 12:00 96.3 92 18 101/63 (76) 97 I/O 05/16/17 05/16/17 05/16/17 05/17/17 05/17/17 05/17/17 07:00 15:00 23:00 07:00 15:00 23:00 Intake Total 1220 ml 372 ml 1700 ml 780 ml 200 ml Output Total 700 ml Balance 520 ml 372 ml 1700 ml 780 ml 200 ml Intake Oral 120 ml 590 ml IV Total 1100 ml 372 ml 1110 ml 780 ml 200 ml Output Urine Total 650 ml Stool Total 50 ml # Voids 4 11 3 # Bowel Movements 5 5 4 Laboratory Laboratory Tests Test 05/17/17 06:18 White Blood Count 6.2 Red Blood Count 3.17 Hemoglobin 9.5 Hematocrit 28.2 Mean Corpuscular Volume 88.8 Mean Corpuscular Hemoglobin 30.1 Mean Corpuscular Hemoglobin Concent 33.9 Red Cell Distribution Width 13.3 Platelet Count 423 Mean Platelet Volume 7.4 Neutrophils (%) (Auto) 59.1 Lymphocytes (%) (Auto) 22.0 Monocytes (%) (Auto) 11.1 Eosinophils (%) (Auto) 5.7 Basophils (%) (Auto) 2.1 Neutrophils # (Auto) 3.7 Lymphocytes # (Auto) 1.4 Monocytes # (Auto) 0.7 Eosinophils # (Auto) 0.4 Basophils # (Auto) 0.1 CBC Comment DIFF FINAL Differential Comment Blood Urea Nitrogen 11 Creatinine 0.77 Random Glucose 92 Albumin 3.1 Calcium Level 8.5 Phosphorus Level 1.0 Magnesium Level 1.9 Sodium Level 140 Potassium Level 3.5 Chloride Level 109 Carbon Dioxide Level 22.8 Anion Gap 8 Estimat Glomerular Filtration Rate 75 Date/Time Source Procedure Growth Status 05/15/17 21:00 Stool Stool Stool Occult Blood (CINDY) - Final HEMOCCULT NEGATIVE Complete Physical Exam HEENT: Normocephalic; atraumatic; no jaundice. CHEST: CTA CARDIAC: RRR ABDOMEN: Soft, nondistended, nontender; no hepatosplenomegaly; bowel sounds are present in all four quadrants. EXTREMITIES: No clubbing, cyanosis, or edema. SKIN: Normal; no rash; no jaundice. SEE SUPERVISOR: No focal deficits; alert and oriented times three. (Aaliyah Kay) Assessment and Plan Plan ASSESSMENT: - Diarrhea, ongoing x 3 weeks. C diff negative (05/15). Stool culture negative. Cryptosporidium and Giardia pending. Hemoccult negative. She was hospitalized recently at [facility] for the same. She was evaluated by our service at that time, and refused colonoscopy. D/W patient further evaluation with EGD/ Colonoscopy for persistent diarrhea, but she is refusing, stating that she was told by Dr. Ramos that she could not have colonoscopy secondary to rectal prolapse repair 3 years ago. CRS consulted. Records from [facility] reviewed. Reports 25 loose stools yesterday (6 in EMR), 1 today (9 in EMR). Still refusing endoscopic eval. - Anemia, no active bleeding noted. HH 9.5/28.2. Hemoccult negative. - HARISH, Hyponatremia, Hypokalemia, Improved. PLAN: - MUNIRA - Monitor HH - Transfuse as necessary - Await final stool studies - Recommend EGD/Colonoscopy, patient refusing - Consult CRS (Pt states she was told by Dr. Ramos that she could not have colonoscopy secondary to rectal prolapse repair 3 years ago) - Supportive care - Further recommendations to follow based on results of above - Patient seen and examined by Dr. Granados and myself and this note is written on his behalf. (Aaliyah Kay) Plan Patient was seen and examined, agree with above note, she would not allow us to do upper endoscopy colonoscopy unless she starts to Dr. Ramos I asked Dr. [place] to see her who is a colorectal surgeon Dr. Ramos will see if he can give us recommendation (Arnoldo Granados MD) Aaliyah Kay May 17, 2017 11:00 Arnoldo Granados MD May 17, 2017 17:40
[2017-05-17] MEDS ORDERED: DIPHENOXYLATE/ATROPINE 2.5 MG/0.025 MG TAB PO PRN (12:00)
[2017-05-17] MEDS: LORazepam 2 MG/ML VIAL IV PUSH PRN ×2 (14:03→20:55)
[2017-05-17] MEDS ORDERED: POTASSIUM PHOSPHATE INJ 15 MMOL in SODIUM CHLORIDE 0.9% INJ 150 ML IV ONE (15:30)
--- NOTE | 2017-05-17 15:35 | HHI.PR ---
Subjective Remarks Patient seen this morning around 11 AM. Says she is still having diffuse abdominal pain. She has not had nausea yet this morning. Feels like she is going to have more diarrhea. Objective Vital Signs Date Time Temp Pulse Resp B/P (MAP) Pulse Ox O2 Delivery O2 Flow Rate FiO2 05/17/17 12:00 97.3 100 18 92/57 (69) 98 05/17/17 11:39 102 92/57 (69) 05/17/17 08:00 97.8 85 16 103/56 (72) 97 05/17/17 04:55 96.6 81 18 93/55 (68) 100 05/17/17 00:00 96.2 81 18 98/54 (69) 98 05/16/17 20:18 99 05/16/17 20:00 96.7 101 18 119/52 (74) 100 05/16/17 16:00 97.0 110 19 114/74 (87) 99 I/O 05/16/17 05/16/17 05/16/17 05/17/17 05/17/17 05/17/17 07:00 15:00 23:00 07:00 15:00 23:00 Intake Total 1220 ml 372 ml 1700 ml 780 ml 200 ml Output Total 700 ml Balance 520 ml 372 ml 1700 ml 780 ml 200 ml Intake Oral 120 ml 590 ml IV Total 1100 ml 372 ml 1110 ml 780 ml 200 ml Output Urine Total 650 ml Stool Total 50 ml # Voids 4 11 3 1 # Bowel Movements 5 5 4 Result Diagram: 05/17/1718 05/17/1718 Objective Remarks GENERAL: patient lying in bed. Appears comfortable. No change on exam from yesterday. SKIN: Warm and dry. HEAD: Normocephalic. EYES: No scleral icterus. No injection or drainage. NECK: Supple, trachea midline. No JVD. CARDIOVASCULAR: Regular rate and rhythm without murmurs, gallops, or rubs. RESPIRATORY: Breath sounds equal bilaterally. No accessory muscle use. GASTROINTESTINAL: Abdomen soft, nondistended. patient reports diffuse abdominal tenderness to moderate palpation. Does not appear severe. No rebound or guarding. MUSCULOSKELETAL: No cyanosis, or edema. BACK: Nontender without obvious deformity. No CVA tenderness. A/P Assessment and Plan ==== 05/17/17 //Hypokalemia. Potassium 3.5. Resolved after replacement. Recheck tomorrow //Hypophosphatemia. Phosphorus 1.0. Replaced. May contribute to gut motility. //Diarrhea. Colorectal surgery following. Appreciate assistance. Giardia has still pending. // Diarrhea: ongoing symptoms x3 wks, recent admit to [facility] for same w/ essentially negative work up. C diff pending, check Stool Culture/WBC. S/p Flagyl in ER, continue w/ empiric treatment. Consult GI for further recommendations. -05/16. GI consult appreciated. C. difficile negative. Follow-up Giardia testing. // HARISH: secondary to dehydration from decreased PO intake and diarrhea. Creatinine 1.84 on admission, previously 0.84 on 02/08/16, 0.69 on 04/28/17 per records. U/a pending. -05/16 Creatinine 1.1. Improving = 05/17. Creatinine 0.77. Resolved on IV fluids. // Hyponatremia: Na 127 on admission, likely secondary to dehydration. -05/16 Improved. Sodium 138. Switched to one half normal saline. = Continue one half normal saline. // Anxiety: h/o Anxiety, Ativan prn. // Conjunctivitis: -Patient states this is improving. Continue Cipro opth gtts. //Hypokalemia. Potassium 2.8. Replace. Check magnesium. Within normal limits. // DVT Prophylaxis: SCD/Teds. Discharge Planning continue diarrhea GI following. Osmar Heard MD May 17, 2017 15:35
[2017-05-17] MEDS ORDERED: NAPHAZOLINE HCL 0.012% OPHT SOLN 15 ML BOTTLE EACH EYE PRN (18:00)
[2017-05-17] MEDS: traZODone HCL 50 MG TAB PO SCH (20:50)
[2017-05-17] MEDS: MIRTAZAPINE 15 MG TAB PO SCH (20:50)
[2017-05-17] MEDS: LOPERAMIDE HCL 2 MG CAP PO PRN (20:55)
--- NOTE | 2017-05-17 22:39 | MB ---
cc: JEFFREY MCCARTHY M.D. DATE OF CONSULTATION 05/17/2017 REASON FOR CONSULTATION Diarrhea. History of rectal prolapse repair. HISTORY OF PRESENT ILLNESS Ms. Dunbar is a 66-year-old female with multiple anxiety disorders and psychiatric diagnoses who is known to Dr. Ramos after a rectal prolapse repair several years ago. The patient reportedly was admitted to [facility] about 2 weeks ago for onset of diarrhea, she claims 10-20 times a day, small stools, liquid in nature. Has been nauseous but denies any vomiting. Denies any abdominal distension. No rectal bleeding. No melena. Reportedly C. Diff was checked at [facility] and it was negative. She has been taking some Imodium without any reported benefit from the patient. The patient was admitted after an ER visit at [facility] with ongoing diarrhea and nausea. She says she is afraid to eat because of the diarrhea. Denies any fevers. The patient was evaluated and found to be hyponatremic, slightly dehydrated. C. Diff was again checked which was negative. The patient was recommended to have a colonoscopy but has refused requesting consultation with Dr. Ramos. She was not very forthcoming with other history and was somewhat insistent upon seeing only Dr. Ramos. PAST MEDICAL AND SURGICAL HISTORY Please see the admitting history and physical for more complete past medical and surgical history. The patient denies any recent travel. MEDICATIONS Were reviewed. The patient notes no particular food association. FAMILY HISTORY No family history of colitis or colorectal disease. PHYSICAL EXAMINATION GENERAL: Pertinent physical, the patient was alert, somewhat anxious and slightly uncooperative due to the fact that Dr. Ramos was not going to come in and see her on a Thursday. ABDOMEN: Very soft and flat, not really distended. No rebound or guarding. No masses. No tenderness. LABORATORY FINDINGS The white count was 6.2, hemoglobin has gone down to 9.5, platelet count is 423,000. Electrolytes remarkable for a low potassium of 2.8 now 3.5. Normal liver function tests. BUN has corrected from 25 to 11. Creatinine from 1.1 down to 0.77. C. Diff was negative. IMPRESSION A 66-year-old female with significant anxiety and psychiatric disorders who had a rectal prolapse repair reportedly about 3 years ago. I was unable to find any record of the repair. She believes colonoscopy was last done many years ago and was normal. I reviewed at length with the patient as much as she was going to discuss her problem. She has tried some Imodium with little relief, to possibly try some Lomotil at a higher dose and see if it would bind up her stools. Other stool cultures are presently pending. We will talk with GI remediation bioanalytics consultant as to prior workup at [facility] prior to repeating x-rays and multiple tests. We will inform Dr. Ramos of the patient's presence in the hospital and will try to get her involved in her care if that would make the patient more comfortable. MD SHIVAM Tinsley/GABRIELLE /9:56 PM /10:23 PM
[2017-05-18] VITALS (7 sets, daily range): BP systolic 98–142; BP diastolic 55–71; PULSE 90–101; RESP 16–21; TEMP 95.5–98.4; O2SAT 94–99
[2017-05-18] MEDS: CIPROFLOXACIN 400 MG PREMIX 200 ML IV SCH ×3 (00:10→22:35)
[2017-05-18] MEDS: CIPROFLOXACIN 0.3% OPTH SOLN 2.5 ML BTL EACH EYE SCH ×6 (00:10→22:38)
[2017-05-18] MEDS: metroNIDAZOLE 500 MG INJ 100 ML IV SCH ×3 (04:39→22:36)
--- NOTE | 2017-05-18 08:17 | HHI.FPPN ---
Subjective Remarks C/O DIARRHEA C/O ABDOM PAIN C/O WEAKNESS D/W RN Objective Vitals Vital Signs Date Time Temp Pulse Resp B/P (MAP) Pulse Ox O2 Delivery O2 Flow Rate FiO2 05/18/17 04:56 97.5 95 18 104/55 (71) 96 05/18/17 00:12 96.5 90 16 105/57 (73) 94 05/17/17 20:36 96.0 87 16 109/61 (77) 95 05/17/17 19:59 87 05/17/17 16:00 97.2 103 18 121/62 (81) 99 05/17/17 12:00 97.3 100 18 92/57 (69) 98 05/17/17 11:39 102 92/57 (69) 05/17/17 10:00 97 I/O 05/17/17 05/17/17 05/17/17 05/18/17 05/18/17 05/18/17 07:00 15:00 23:00 07:00 15:00 23:00 Intake Total 780 ml 300 ml 1788 ml 680 ml Balance 780 ml 300 ml 1788 ml 680 ml Intake Oral 960 ml 680 ml IV Total 780 ml 300 ml 828 ml # Voids 3 1 7 5 # Bowel Movements 4 2 5 Result Diagram: 05/17/1761705/17/17617 Objective Remarks GENERAL: SKIN: Warm and dry. HEAD: Atraumatic. Normocephalic. EYES: Pupils equal and round. No scleral icterus. No injection or drainage. ENT: No nasal bleeding or discharge. Mucous membranes pink and moist. NECK: Trachea midline. No JVD. CARDIOVASCULAR: Regular rate and rhythm. RESPIRATORY: No accessory muscle use. Clear to auscultation. Breath sounds equal bilaterally. GASTROINTESTINAL: Abdomen soft, non-tender, nondistended. Hepatic and splenic margins not palpable. MUSCULOSKELETAL: Extremities without clubbing, cyanosis, or edema. No obvious deformities. NEUROLOGICAL: Awake and alert. No obvious cranial nerve deficits. Motor grossly within normal limits. 2 out of 5 muscle strength in the arms and legs. Normal speech. PSYCHIATRIC: flat Medications and IVs Current Medications Medications (Trade) Dose Ordered Sig/Linh Route Start Time Stop Time Status Last Admin (Ciloxan 0.3% Opth Soln) 1 drop Q4H EACH EYE 05/16/17 00:00 05/18/17 08:25 (Ativan Inj) 1 mg Q2H PRN IV PUSH 05/15/17 21:45 05/17/17 20:55 (NS Flush) 2 ml UNSCH PRN IV FLUSH 05/15/17 21:45 (NS Flush) 2 ml BID IV FLUSH 05/16/17 09:00 05/17/17 20:50 (Zofran Inj) 4 mg Q6H PRN IVP 05/15/17 21:45 05/17/17 20:54 (Morphine Inj) 1 mg Q3H PRN IV PUSH 05/15/17 21:45 (Morphine Inj) 2 mg Q3H PRN IV PUSH 05/15/17 21:45 (Dulcolax Supp) 10 mg DAILY PRN RECTAL 05/15/17 21:45 (Remeron) 15 mg HS PO 05/16/17 21:00 05/17/17 20:50 (SEROquel) 100 mg TID PO 05/16/17 09:00 05/18/17 08:25 (Zoloft) 50 mg DAILY PO 05/16/17 09:00 05/18/17 08:25 (Desyrel) 50 mg HS PO 05/16/17 21:00 05/17/17 20:50 Patient Own Medication PT OWN MED: APR... DAILY PO 05/16/17 09:00 Metronidazole 100 ml @ 100 mls/hr Q8H IV 05/16/17 06:00 05/18/17 04:39 Ciprofloxacin/ Dextrose 200 ml @ 200 mls/hr Q12H IV 05/15/17 23:00 05/18/17 00:10 (Imodium) 2 mg Q4H PRN PO 05/15/17 23:00 05/17/17 20:55 Potassium Chloride/Sodium Chloride 1,000 ml @ 84 mls/hr [id number] IV 05/16/17 09:15 05/18/17 08:27 (Lomotil Tab) 1 tab Q6H PRN PO 05/17/17 12:00 (Clear Eyes Redness Relief 0.012% Opth Soln) 1 drop QID PRN EACH EYE 05/17/17 18:00 A/P Assessment and Plan Diarrhea. Colorectal surgery following. Appreciate assistance. Giardia pending. Rectal prolapse, history of HARISH: secondary to dehydration from decreased PO intake and diarrhea. Creatinine 1.84 on admission, previously 0.84 on 02/08/16, 0.69 on 04/28/17 per records. Hypokalemia- Recheck Hypophosphatemia- Phosphorus 1.0. Replaced. May contribute to gut motility. Anorexia OCD Hyponatremia: Na 127 on admission, likely secondary to dehydration. Continue one half normal saline. Anxiety: h/o Anxiety, Ativan prn. Conjunctivitis: Patient states this is improving. Continue Cipro opth gtts. DVT Prophylaxis: SCD/Teds. Discharge Planning- SNF OR BACK TO [facility] Jenaro Pizarro MD May 18, 2017 08:17
[2017-05-18 08:25] LABS: AUTOMATED NEUTROPHIL # 2.6 TH/MM3 (1.8-7.7); BASOPHIL # 0.1 TH/MM3 (0-0.2); BASOPHIL % 1.3 % (0.0-2.0); EOSINOPHIL # 0.4 TH/MM3 (0-0.4); HEMATOCRIT 25.5 % (35.0-46.0); HEMO FLAGS DIFF FINAL; LYMPH % 30.4 % (9.0-44.0); LYMPHOCYTE # 1.7 TH/MM3 (1.0-4.8); MEAN CELL VOLUME 89.3 FL (80.0-100.0); MEAN CORPUSCULAR HEMOGLOBIN 29.7 PG (27.0-34.0); MEAN CORPUSCULAR HGB CONC 33.2 % (32.0-36.0); MONO % 13.7 % (0.0-8.0); NEUT % 46.6 % (16.0-70.0); PLATELET COUNT 377 TH/MM3 (150-450); RED BLOOD COUNT 2.86 MIL/MM3 (4.00-5.30); RED CELL DISTRIBUTION WIDTH 13.5 % (11.6-17.2); WHITE BLOOD COUNT 5.5 TH/MM3 (4.0-11.0)
[2017-05-18] MEDS: SODIUM CHLORIDE 0.9% FLUSH 10 ML FLUSH IV FLUSH SCH ×2 (08:25→21:00)
[2017-05-18] MEDS: MESALAMINE PO SCH (08:25)
[2017-05-18] MEDS: SERTRALINE HCL 50 MG TAB PO SCH (08:25)
[2017-05-18] MEDS: QUEtiapine FUMARATE 100 MG TAB PO SCH ×3 (08:25→17:16)
[2017-05-18] MEDS: 1/2 NS + KCL 20 MEQ INJ 1,000 ML IV SCH ×2 (08:27→22:38)
[2017-05-18] MEDS: ONDANSETRON HCL 4 MG/2 ML VIAL IVP PRN (09:08)
[2017-05-18 09:14] LABS: BICARBONATE 23.7 MEQ/L (21.0-32.0); MAGNESIUM 1.6 MG/DL (1.5-2.5); POTASSIUM 3.6 MEQ/L (3.5-5.1)
--- NOTE | 2017-05-18 11:53 | HHI.GIFU ---
Subjective Remarks Resting in bed. Still having diarrhea "a few so far today." Seems to be annoyed that she has not been seen by Dr. Ramos yet. She was seen by Dr. Ibrahim yesterday, but patient insisted on being seen by Dr. Ramos and therefore she was consulted. Pt adamantly refusing colonoscopy until seen by Dr. Ramos. (Aaliyah Kay [facility]) Objective Vitals I&O Vital Signs Date Time Temp Pulse Resp B/P (MAP) Pulse Ox O2 Delivery O2 Flow Rate FiO2 05/18/17 08:00 98.4 101 16 98/64 (75) 97 05/18/17 04:56 97.5 95 18 104/55 (71) 96 05/18/17 00:12 96.5 90 16 105/57 (73) 94 05/17/17 20:36 96.0 87 16 109/61 (77) 95 05/17/17 19:59 87 05/17/17 16:00 97.2 103 18 121/62 (81) 99 05/17/17 12:00 97.3 100 18 92/57 (69) 98 I/O 05/17/17 05/17/17 05/17/17 05/18/17 05/18/17 05/18/17 07:00 15:00 23:00 07:00 15:00 23:00 Intake Total 780 ml 300 ml 1788 ml 680 ml 100 ml Balance 780 ml 300 ml 1788 ml 680 ml 100 ml Intake Oral 960 ml 680 ml IV Total 780 ml 300 ml 828 ml 100 ml # Voids 3 1 7 5 2 # Bowel Movements 4 2 5 1 Laboratory Laboratory Tests Test 05/18/17 06:30 White Blood Count 5.5 Red Blood Count 2.86 Hemoglobin 8.5 Hematocrit 25.5 Mean Corpuscular Volume 89.3 Mean Corpuscular Hemoglobin 29.7 Mean Corpuscular Hemoglobin Concent 33.2 Red Cell Distribution Width 13.5 Platelet Count 377 Mean Platelet Volume 7.6 Neutrophils (%) (Auto) 46.6 Lymphocytes (%) (Auto) 30.4 Monocytes (%) (Auto) 13.7 Eosinophils (%) (Auto) 8.0 Basophils (%) (Auto) 1.3 Neutrophils # (Auto) 2.6 Lymphocytes # (Auto) 1.7 Monocytes # (Auto) 0.7 Eosinophils # (Auto) 0.4 Basophils # (Auto) 0.1 CBC Comment DIFF FINAL Differential Comment Blood Urea Nitrogen 10 Creatinine 0.60 Random Glucose 82 Albumin 2.5 Calcium Level 8.1 Phosphorus Level 1.7 Magnesium Level 1.6 Sodium Level 142 Potassium Level 3.6 Chloride Level 111 Carbon Dioxide Level 23.7 Anion Gap 7 Estimat Glomerular Filtration Rate 100 Date/Time Source Procedure Growth Status 05/15/17 21:00 Stool Stool Stool Occult Blood (CINDY) - Final HEMOCCULT NEGATIVE Complete Physical Exam HEENT: Normocephalic; atraumatic; no jaundice. CHEST: CTA CARDIAC: RRR ABDOMEN: Soft, nondistended, nontender; no hepatosplenomegaly; bowel sounds are present in all four quadrants. EXTREMITIES: No clubbing, cyanosis, or edema. SKIN: Generalized pallor HOT DIE PICKER: No focal deficits; alert and oriented times three. (Aaliyah Kay) Assessment and Plan Plan ASSESSMENT: - Diarrhea, ongoing x 3 weeks. C diff negative (05/15). Stool culture negative. Cryptosporidium and Giardia pending. Hemoccult negative. She was hospitalized recently at [facility] for the same. She was evaluated by our service at that time, and refused colonoscopy. D/W patient further evaluation with EGD/ Colonoscopy for persistent diarrhea, but she is refusing, stating that she was told by Dr. Ramos that she could not have colonoscopy secondary to rectal prolapse repair 3 years ago. S/P evaluation by Dr. Ibrahim with CRS, but patient demanded to be seen by Dr. Ramos and will not consider any further workup until she has been seen by Dr. Ramos. Records from [facility] reviewed. Reports 2 liquid stools today. Refusing egd/colonoscopy. Will get celiac panel, qualitative fat. - Anemia, no active bleeding noted. HH 8.5/25.5 Hemoccult negative. - HARISH, Hyponatremia, Hypokalemia, Improved. PLAN: - MUNIRA - Monitor HH - Transfuse as necessary - Celiac panel - Fecal fat (qualitative) - Await final stool studies (giardia, cryptosporidium) - Recommend EGD/Colonoscopy, patient refusing until she has been by Dr. Ramos. She was seen by Dr. Ibrahim yesterday for CRS, but patient insisting on being seen by Dr. Ramos. - Supportive care - Further recommendations to follow based on results of above - Patient seen and examined by Dr. Lewis and myself and this note is written on her behalf. (Aaliyah Kay) Physician Comments seen, examined agree with above as per patient she discussed with and agreed on colonoscopy this week drop in hb-no active bleeding reviewed records from [facility] (Diana Lewis MD) Aaliyah Kay May 18, 2017 11:53 Diana Lewis MD May 18, 2017 17:06
[2017-05-18] MEDS: LORazepam 2 MG/ML VIAL IV PUSH PRN ×3 (12:12→22:40)
[2017-05-18] MEDS: traZODone HCL 50 MG TAB PO SCH (22:39)
[2017-05-18] MEDS: MIRTAZAPINE 15 MG TAB PO SCH (22:39)
[2017-05-19] VITALS (7 sets, daily range): BP systolic 109–154; BP diastolic 69–87; PULSE 74–110; RESP 17–18; TEMP 95.3–97.9; O2SAT 96–100
[2017-05-19] MEDS: CIPROFLOXACIN 0.3% OPTH SOLN 2.5 ML BTL EACH EYE SCH ×6 (04:00→20:14)
[2017-05-19] MEDS: metroNIDAZOLE 500 MG INJ 100 ML IV SCH ×3 (05:16→23:01)
[2017-05-19 07:12] LABS: AUTOMATED NEUTROPHIL # 2.5 TH/MM3 (1.8-7.7); BASOPHIL # 0.1 TH/MM3 (0-0.2); BASOPHIL % 1.4 % (0.0-2.0); EOSINOPHIL # 0.6 TH/MM3 (0-0.4); EOSINOPHIL % 11.1 % (0.0-4.0); HEMATOCRIT 25.2 % (35.0-46.0); HEMO FLAGS DIFF FINAL; LYMPH % 29.4 % (9.0-44.0); LYMPHOCYTE # 1.6 TH/MM3 (1.0-4.8); MEAN CORPUSCULAR HEMOGLOBIN 29.7 PG (27.0-34.0); MEAN CORPUSCULAR HGB CONC 33.7 % (32.0-36.0); MONO % 11.8 % (0.0-8.0); NEUT % 46.3 % (16.0-70.0); PLATELET COUNT 350 TH/MM3 (150-450); RED BLOOD COUNT 2.86 MIL/MM3 (4.00-5.30); RED CELL DISTRIBUTION WIDTH 13.6 % (11.6-17.2); WHITE BLOOD COUNT 5.3 TH/MM3 (4.0-11.0)
[2017-05-19 07:35] LABS: BICARBONATE 27.3 MEQ/L (21.0-32.0); POTASSIUM 3.4 MEQ/L (3.5-5.1)
[2017-05-19] MEDS: SERTRALINE HCL 50 MG TAB PO SCH (08:34)
[2017-05-19] MEDS: QUEtiapine FUMARATE 100 MG TAB PO SCH ×3 (08:34→18:00)
--- NOTE | 2017-05-19 08:48 | HHI.FPPN ---
Subjective Remarks PT REPORTS DR RAMOS TOLD HER SHE WAS TO HAVE COLONOSC TODAY C/O DIARRHEA D/W RN Objective Vitals Vital Signs Date Time Temp Pulse Resp B/P (MAP) Pulse Ox O2 Delivery O2 Flow Rate FiO2 05/19/17 04:00 97.9 98 18 124/69 (87) 97 05/19/17 00:00 97.2 96 17 148/85 (106) 96 05/18/17 20:34 93 05/18/17 20:00 98.4 98 21 124/71 (88) 99 05/18/17 16:00 95.5 97 17 122/70 (87) 97 05/18/17 12:00 96.6 101 16 142/66 (91) 97 I/O 05/18/17 05/18/17 05/18/17 05/19/17 05/19/17 05/19/17 07:00 15:00 23:00 07:00 15:00 23:00 Intake Total 680 ml 400 ml 1658 ml 1511 ml Balance 680 ml 400 ml 1658 ml 1511 ml Intake Oral 680 ml 1000 ml IV Total 400 ml 658 ml 1511 ml # Voids 5 2 6 # Bowel Movements 5 1 2 Result Diagram: 05/19/1761405/19/17614 Objective Remarks GENERAL: SKIN: Warm and dry. HEAD: Atraumatic. Normocephalic. EYES: Pupils equal and round. No scleral icterus. No injection or drainage. ENT: No nasal bleeding or discharge. Mucous membranes pink and moist. NECK: Trachea midline. No JVD. CARDIOVASCULAR: Regular rate and rhythm. RESPIRATORY: No accessory muscle use. Clear to auscultation. Breath sounds equal bilaterally. GASTROINTESTINAL: Abdomen soft, non-tender, nondistended. Hepatic and splenic margins not palpable. MUSCULOSKELETAL: Extremities without clubbing, cyanosis, or edema. No obvious deformities. NEUROLOGICAL: Awake and alert. No obvious cranial nerve deficits. Motor grossly within normal limits. 2 out of 5 muscle strength in the arms and legs. Normal speech. PSYCHIATRIC: flat Medications and IVs Current Medications Medications (Trade) Dose Ordered Sig/Linh Route Start Time Stop Time Status Last Admin (Ciloxan 0.3% Opth Soln) 1 drop Q4H EACH EYE 05/16/17 00:00 05/18/17 22:38 (Ativan Inj) 1 mg Q2H PRN IV PUSH 05/15/17 21:45 05/18/17 22:40 (NS Flush) 2 ml UNSCH PRN IV FLUSH 05/15/17 21:45 (NS Flush) 2 ml BID IV FLUSH 05/16/17 09:00 05/17/17 20:50 (Zofran Inj) 4 mg Q6H PRN IVP 05/15/17 21:45 05/18/17 09:08 (Morphine Inj) 1 mg Q3H PRN IV PUSH 05/15/17 21:45 (Morphine Inj) 2 mg Q3H PRN IV PUSH 05/15/17 21:45 (Dulcolax Supp) 10 mg DAILY PRN RECTAL 05/15/17 21:45 (Remeron) 15 mg HS PO 05/16/17 21:00 05/18/17 22:39 (SEROquel) 100 mg TID PO 05/16/17 09:00 05/19/17 08:34 (Zoloft) 50 mg DAILY PO 05/16/17 09:00 05/19/17 08:34 (Desyrel) 50 mg HS PO 05/16/17 21:00 05/18/17 22:39 Patient Own Medication PT OWN MED: APR... DAILY PO 05/16/17 09:00 Metronidazole 100 ml @ 100 mls/hr Q8H IV 05/16/17 06:00 05/19/17 05:16 Ciprofloxacin/ Dextrose 200 ml @ 200 mls/hr Q12H IV 05/15/17 23:00 05/18/17 22:35 (Imodium) 2 mg Q4H PRN PO 05/15/17 23:00 05/17/17 20:55 Potassium Chloride/Sodium Chloride 1,000 ml @ 84 mls/hr [id number] IV 05/16/17 09:15 05/18/17 22:38 (Lomotil Tab) 1 tab Q6H PRN PO 05/17/17 12:00 (Clear Eyes Redness Relief 0.012% Opth Soln) 1 drop QID PRN EACH EYE 05/17/17 18:00 A/P Assessment and Plan Diarrhea- dr Edd Ramos consulted. Rectal prolapse, history of HARISH: secondary to dehydration from decreased PO intake and diarrhea. Creatinine 1.84 on admission, previously 0.84 on 02/08/16, 0.69 on 04/28/17 per records. Hypokalemia- change to d5 w K Hypophosphatemia- Phosphorus 1.0. Replaced. May contribute to gut motility. Anorexia OCD DELUSIONS- psych consult Hyponatremia: Na 127 on admission, likely secondary to dehydration. Anxiety: h/o Anxiety, Ativan prn. Conjunctivitis: Patient states this is improving. Continue Cipro opth gtts. DVT Prophylaxis: SCD/Teds. Discharge Planning- SNF OR BACK TO [facility] Jenaro Pizarro MD May 19, 2017 08:48
[2017-05-19] MEDS: MESALAMINE PO SCH (09:00)
[2017-05-19] MEDS: SODIUM CHLORIDE 0.9% FLUSH 10 ML FLUSH IV FLUSH SCH ×2 (09:00→20:15)
[2017-05-19] MEDS: D5-1/2 NS + KCL 40 MEQ INJ 1,000 ML IV SCH ×2 (09:11→20:15)
--- NOTE | 2017-05-19 09:50 | MB ---
cc: JOSE DE JESUS MOCTEZUMA M.D. DATE OF CONSULTATION May 18, 2017 CHIEF COMPLAINT Diarrhea. HISTORY OF PRESENT ILLNESS The patient is a 66-year-old female who is well known to myself. Approximately two years ago she underwent a laparoscopic rectopexy for rectal prolapse. She has chronic problems with diarrhea as well as incontinence, but we had gotten her to the point where she was relatively under control with four to six semi-formed stools daily. I had not seen her for about a year and a half. The patient came to the emergency department from her [facility] with a history of three weeks of severe diarrhea. She had actually been admitted to [facility] two weeks prior to this admission for similar symptoms. At that time C. difficile was negative and the patient refused colonoscopy or EGD. She did have ongoing diarrhea and so was sent back to [place]. Since admission she has been stable with a mildly elevated creatinine of 1.84. She did receive IV Flagyl and all stool studies for infection have been negative at this time. She continues to refuse colonoscopy due to her history of having had a prolapse repair. PAST MEDICAL HISTORY 1. Bipolar disorder. 2. Anorexia nervosa. 3. Depression/anxiety. 4. Rheumatoid arthritis. 5. Gastroesophageal reflux disease. 6. Migraines. PAST SURGICAL HISTORY 1. Hysterectomy. 2. Laparoscopic rectopexy. 3. Tonsillectomy. ALLERGIES SULFA. PROCHLORPERAZINE. ACETAMINOPHEN. ASPIRIN OXACILLIN SHELLFISH. MEDICATIONS See nurse's notes for details. REVIEW OF SYSTEMS Negative with the exception of above. PHYSICAL EXAMINATION GENERAL: Physical exam reveals an alert female who appears anxious and has many repetitive motions consistent with her previous history. SKIN: Warm and dry. HEAD: Normocephalic, atraumatic. CHEST: Breathing is symmetric bilaterally and nonlabored. CARDIOVASCULAR: Regular rate. ABDOMEN: Soft, nondistended, nontender. EXTREMITIES: Reveal no edema. LABORATORY WORK At the time of consultation reveals a white count of 5.5, hemoglobin 8.5, platelets of 377. Chemistry: Sodium 142, potassium 3.6, chloride is 111, bicarb is 23.7, BUN is 10, creatinine is 0.6, phosphorus was 1.7 and albumin at 2.5. Her weight during this admission has been 40 kg, which is fairly good for her, almost up to 100 pounds, with her history of anorexia. IMPRESSION Patient with chronic diarrhea with worsening. Of note, she actually had only three to four stools in the first 12 hours of the day of consult, so this does seem to be improving somewhat, almost back to her baseline. However, I do think a colonoscopy would be prudent and I have talked to her about that. She is not sure whether she is willing to go forward with this, so I will give her time to think about it. We will talk about it on Thursday. If she is willing to go forward with this, we will prep her on Thursday and go forward with colonoscopy Thursday. Thank you very much for your kind referral. MD ROSALIA Montana/SSB /9:27 AM /9:36 AM MTDTaye
[2017-05-19] MEDS: CIPROFLOXACIN 400 MG PREMIX 200 ML IV SCH (10:25)
[2017-05-19] MEDS: LORazepam 2 MG/ML VIAL IV PUSH PRN ×2 (10:26→16:34)
--- NOTE | 2017-05-19 11:29 | HHI.GIFU ---
Subjective Remarks Resting in bed. Tearful. States the nurses are not helping her. States she wants to have the colonoscopy today and does not want to wait until tomorrow. States she has had "a few loose bowel movements" today. No bleeding. (Aaliyah Kay) Objective Vitals I&O Vital Signs Date Time Temp Pulse Resp B/P (MAP) Pulse Ox O2 Delivery O2 Flow Rate FiO2 05/19/17 08:00 97.9 110 18 109/72 (84) 97 05/19/17 04:00 97.9 98 18 124/69 (87) 97 05/19/17 00:00 97.2 96 17 148/85 (106) 96 05/18/17 20:34 93 05/18/17 20:00 98.4 98 21 124/71 (88) 99 05/18/17 16:00 95.5 97 17 122/70 (87) 97 05/18/17 12:00 96.6 101 16 142/66 (91) 97 I/O 05/18/17 05/18/17 05/18/17 05/19/17 05/19/17 05/19/17 07:00 15:00 23:00 07:00 15:00 23:00 Intake Total 680 ml 400 ml 1658 ml 1511 ml 168 ml Balance 680 ml 400 ml 1658 ml 1511 ml 168 ml Intake Oral 680 ml 1000 ml IV Total 400 ml 658 ml 1511 ml 168 ml # Voids 5 2 6 # Bowel Movements 5 1 2 Laboratory Laboratory Tests Test 05/19/17 06:15 White Blood Count 5.3 Red Blood Count 2.86 Hemoglobin 8.5 Hematocrit 25.2 Mean Corpuscular Volume 88.0 Mean Corpuscular Hemoglobin 29.7 Mean Corpuscular Hemoglobin Concent 33.7 Red Cell Distribution Width 13.6 Platelet Count 350 Mean Platelet Volume 7.3 Neutrophils (%) (Auto) 46.3 Lymphocytes (%) (Auto) 29.4 Monocytes (%) (Auto) 11.8 Eosinophils (%) (Auto) 11.1 Basophils (%) (Auto) 1.4 Neutrophils # (Auto) 2.5 Lymphocytes # (Auto) 1.6 Monocytes # (Auto) 0.6 Eosinophils # (Auto) 0.6 Basophils # (Auto) 0.1 CBC Comment DIFF FINAL Differential Comment Blood Urea Nitrogen 6 Creatinine 0.64 Random Glucose 94 Calcium Level 8.0 Sodium Level 144 Potassium Level 3.4 Chloride Level 110 Carbon Dioxide Level 27.3 Anion Gap 7 Estimat Glomerular Filtration Rate 93 Date/Time Source Procedure Growth Status 05/15/17 21:00 Stool Stool Stool Occult Blood (CINDY) - Final HEMOCCULT NEGATIVE Complete Physical Exam HEENT: Normocephalic; atraumatic; no jaundice. CHEST: CTA CARDIAC: RRR ABDOMEN: Soft, nondistended, nontender; no hepatosplenomegaly; bowel sounds are present in all four quadrants. EXTREMITIES: Mild generalized edema. SKIN: Generalized pallor DEVELOPMENT EXECUTIVE: No focal deficits; alert and oriented times three. (Aaliyah Kay) Assessment and Plan Plan ASSESSMENT: - Diarrhea, ongoing x 3 weeks. C diff negative (05/15). Stool culture negative. Cryptosporidium and Giardia neg. Hemoccult negative. She was hospitalized recently at [facility] for the same. She was evaluated by our service at that time, and refused colonoscopy. D/W patient further evaluation with EGD/ Colonoscopy for persistent diarrhea, but she is refusing, stating that she was told by Dr. Ramos that she could not have colonoscopy secondary to rectal prolapse repair 3 years ago. S/P evaluation by Dr. Ibrahim with CRS, but patient demanded to be seen by Dr. Ramos and will not consider any further workup until she has been seen by Dr. Ramos. Records from [facility] reviewed. She was seen by Dr. Ramos and the plan is for colonoscopy on Thursday with CRS. The patient is now tearful stating she wants to have procedure today and not tomorrow. 2 loose stools. Celiac panel, fecal fat pending. - Anemia, no active bleeding noted. HH 8.5/25.2 Hemoccult negative. - HARISH, Hyponatremia, Hypokalemia, Improved. PLAN: - MUNIRA - Monitor HH - Transfuse as necessary - Await Celiac panel - Await Fecal fat (qualitative) - Await final stool studies (giardia, cryptosporidium) - Refused egd/colonoscopy by our service, requesting Dr. Ramos - CRS following, plan is for colonoscopy with CRS on Thursday - Patient seen and examined by Dr. Lewis and myself and this note is written on her behalf. (Kay,Aaliyah Huynh May 19, 2017 11:29 Diana Lewis MD May 19, 2017 17:41
[2017-05-19] MEDS ORDERED: PEG (High)/E-LYTE SOLN 4000 ML BTL PO ONE (13:15)
[2017-05-19] MEDS: traZODone HCL 50 MG TAB PO SCH (20:15)
[2017-05-19] MEDS: MIRTAZAPINE 15 MG TAB PO SCH (20:15)
[2017-05-20] VITALS: BP 124/73; PULSE 81; RESP 17; TEMP 96; O2SAT 100
[2017-05-20] MEDS: CIPROFLOXACIN 400 MG PREMIX 200 ML IV SCH (00:20)
[2017-05-20 00:35] VITALS: PULSE 90
[2017-05-20] MEDS ORDERED: LACTATED RINGER'S 1000 ML IV PRN (02:45)
[2017-05-20] MEDS ORDERED: SODIUM CHLORID 0.9% 500 ML IV PRN (02:45)
[2017-05-20] MEDS ORDERED: POVIDONE IODINE 5% (ANTISEPSIS KIT) 4 APPLICATIONS EACH NARE PRN (02:45)
[2017-05-20] MEDS ORDERED: CHLORHEXIDINE GLUCONATE 2 % 1 PACK (2 CLOTHS) TOPICAL PRN (02:45)
[2017-05-20] MEDS ORDERED: INSULIN HUMAN REGULAR 1,000 UNITS/10 ML VIAL SQ PRN (02:45)
[2017-05-20] MEDS: CIPROFLOXACIN 0.3% OPTH SOLN 2.5 ML BTL EACH EYE SCH ×2 (03:45)
[2017-05-20 04:00] VITALS: BP 136/85; PULSE 92; RESP 17; TEMP 97; O2SAT 97
[2017-05-20 04:27] VITALS: PULSE 70
[2017-05-20] MEDS: D5-1/2 NS + KCL 40 MEQ INJ 1,000 ML IV SCH (05:07)
[2017-05-20] MEDS: metroNIDAZOLE 500 MG INJ 100 ML IV SCH (05:07)
[2017-05-20 07:15] LABS: BICARBONATE 28.6 MEQ/L (21.0-32.0); POTASSIUM 3.3 MEQ/L (3.5-5.1)
[2017-05-20 07:21] LABS: AUTOMATED NEUTROPHIL # 2.1 TH/MM3 (1.8-7.7); BASOPHIL # 0.1 TH/MM3 (0-0.2); BASOPHIL % 2.3 % (0.0-2.0); EOSINOPHIL # 0.6 TH/MM3 (0-0.4); EOSINOPHIL % 12.3 % (0.0-4.0); HEMATOCRIT 26.5 % (35.0-46.0); HEMO FLAGS DIFF FINAL; LYMPH % 26.9 % (9.0-44.0); LYMPHOCYTE # 1.3 TH/MM3 (1.0-4.8); MEAN CELL VOLUME 88.3 FL (80.0-100.0); MEAN CORPUSCULAR HEMOGLOBIN 29.6 PG (27.0-34.0); MEAN CORPUSCULAR HGB CONC 33.5 % (32.0-36.0); NEUT % 45.5 % (16.0-70.0); PLATELET COUNT 347 TH/MM3 (150-450); RED CELL DISTRIBUTION WIDTH 13.7 % (11.6-17.2); WHITE BLOOD COUNT 4.7 TH/MM3 (4.0-11.0)
[2017-05-20] MEDS ORDERED: PROPOFOL 200 MG/20 ML AMP ONE (07:31)
[2017-05-20] MEDS ORDERED: DO NOT ADM ANY ANTICOAGULANT DRUGS PRN (08:14)
[2017-05-20 08:15] VITALS: TEMP 98.6
--- NOTE | 2017-05-20 08:15 | GIPROC ---
[facility] [address] [facility]. [facility], [address] COLONOSCOPY PROCEDURE REPORT EXAM DATE: 05/20/2017 PATIENT NAME: Elise Dunbar MR #: [id number] BIRTHDATE: 1950 ENDOSCOPIST: Shonda Ramos MD ORDER #: [id number] INBOUND TELEMARKETER: Naina Tarango and Gerry Holguin STATUS: inpatient INDICATIONS: The patient is a 66 yr old female here for a colonoscopy due to Change of bowel habits, diarrhea. PROCEDURE PERFORMED: Total colonoscopy with biopsy MEDICATIONS: See Anesthesia Record ESTIMATED BLOOD LOSS: None CONSENT: The patient understands the risks and benefits of the procedure and understands that these risks include, but are not limited to: sedation, allergic reaction, infection, perforation and/or bleeding. Alternative means of evaluation and treatment include, among others: physical exam, x-rays, and/or surgical intervention. The patient elects to proceed with this endoscopic procedure. DESCRIPTION OF PROCEDURE: checked for proper function. Hand hygiene and appropriate measures for infection prevention was taken. After the risks, benefits and alternatives of the procedure were thoroughly explained, Informed consent was verified, confirmed and timeout was successfully executed by the treatment team. A digital exam was performed. The endoscope was introduced through the anus and advanced to the cecum with a moderate amount of difficulty, which was controlled with abdominal wall pressure. The cecum was identified by the appendiceal orifice, tri-radiate valve, and ileocecal valve. The prep quality was excellent. The instrument was then slowly withdrawn as the colon was fully examined. There were no mucosal abnormalities noted with the cecum, ascending colon, transverse colon, descending colon, sigmoid, or rectum. Random biopsies were performed to rule out colitis. The scope was then completely withdrawn from the patient and the procedure terminated. ADVERSE EVENTS: There were no complications. WITHDRAWL TIME: DEGREE OF DIFFICULTY: IMPRESSIONS: Normal Colon RECOMMENDATIONS: Advance diet, home per Medical Service PATIENT CONDITION: Stable DISPOSITION: to floor RECALL: 10 years Shonda Ramos MD eSigned: Shonda Ramos MD 05/20/2017 8:15 AM cc: PATIENT NAME: Elise Dunbar MR#: [id number]
--- NOTE | 2017-05-20 08:19 | HHI.PR ---
Subjective Remarks Diarrhea Objective Vital Signs Date Time Temp Pulse Resp B/P (MAP) Pulse Ox O2 Delivery O2 Flow Rate FiO2 05/20/17 04:27 70 05/20/17 04:00 97.0 92 17 136/85 (102) 97 05/20/17 00:35 90 05/20/17 00:00 96.0 81 17 124/73 (90) 100 05/19/17 21:07 74 05/19/17 20:00 96.4 89 17 130/87 (101) 100 05/19/17 16:00 95.3 90 18 148/83 (104) 100 05/19/17 12:00 97.2 99 18 154/87 (109) 99 I/O 05/19/17 05/19/17 05/19/17 05/20/17 05/20/17 05/20/17 07:00 15:00 23:00 07:00 15:00 23:00 Intake Total 1511 ml 168 ml 2000 ml 1325 ml Balance 1511 ml 168 ml 2000 ml 1325 ml Intake Oral 2000 ml IV Total 1511 ml 168 ml 1325 ml # Voids 13 # Bowel Movements 12 Result Diagram: 05/20/17 0611 05/20/17 0611 Objective Remarks Abdomen benign Colonoscopy without visible abnormality Assessment and Plan Discharge Planning Ok for discharge when ok with Medical service Imodium for diarrhea Followup with myself in 2 weeks for diarrhea Shonda Ramos MD May 20, 2017 08:19
[2017-05-20] MEDS ORDERED: LOPERAMIDE HCL 2 MG CAP PO PRN (08:30)
[2017-05-20 08:33] VITALS: BP 123/76; PULSE 83; RESP 17; O2SAT 100
[2017-05-20] MEDS ORDERED: LOPE-1 PO (09:37)
[2017-05-20] MEDS ORDERED: SERO300T PO (09:37)
[2017-05-20] MEDS ORDERED: FLUO1TAB3 PO (09:37)
--- NOTE | 2017-05-20 09:38 | HHI.DCPOC ---
Discharge Care Plan Diagnosis: (1) Hypertension (2) Rheumatoid arthritis (3) Migraine headache (4) GERD (gastroesophageal reflux disease) (5) Nausea & vomiting (6) Teeth grinding (7) Depression (emotion) (8) Conjunctivitis (9) Diarrhea (10) Acute kidney injury (11) Anxiety (12) Hyponatremia (13) HARISH (acute kidney injury) Goals to Promote Your Health * To prevent worsening of your condition and complications * To maintain your health at the optimal level Directions to Meet Your Goals Take your medications as prescribed Follow your dietary instruction Follow activity as directed Keep your appointments as scheduled Take your immunizations and boosters as scheduled If your symptoms worsen call your PCP, if no PCP go to Urgent Care Center or Emergency Room Smoking is Dangerous to Your Health. Avoid second hand smoke Call the 24-hour hour crisis hotline for domestic abuse at Jenaro Pizarro MD May 20, 2017 09:38
[2017-05-20] MEDS ORDERED: KPHOS250 PO (09:40)
--- NOTE | 2017-05-20 09:40 | HHI.DS ---
Discharge Summary Admission Date May 15, 2017 at 21:30 Discharge Date: May 20, 2017 Admitting Diagnosis acute kidney injury, diarrhea, conjunctivitis (1) Diarrhea ICD Codes: R19.7 - Diarrhea, unspecified Status: Acute (2) HARISH (acute kidney injury) ICD Codes: N17.9 - Acute kidney failure, unspecified (3) Hyponatremia ICD Codes: E87.1 - Hypo-osmolality and hyponatremia (4) Anxiety ICD Codes: F41.9 - Anxiety Status: Acute (5) Conjunctivitis ICD Codes: H10.9 - Unspecified conjunctivitis Status: Acute CBC/BMP: 05/20/17 0611 05/20/17 0611 Significant Findings Laboratory Tests Test 05/18/17 06:30 05/19/17 06:15 05/20/17 06:11 Red Blood Count 2.86 MIL/MM3 (4.00-5.30) 2.86 MIL/MM3 (4.00-5.30) 3.00 MIL/MM3 (4.00-5.30) Hemoglobin 8.5 GM/DL (11.6-15.3) 8.5 GM/DL (11.6-15.3) 8.9 GM/DL (11.6-15.3) Hematocrit 25.5 % (35.0-46.0) 25.2 % (35.0-46.0) 26.5 % (35.0-46.0) Monocytes (%) (Auto) 13.7 % (0.0-8.0) 11.8 % (0.0-8.0) 13.0 % (0.0-8.0) Eosinophils (%) (Auto) 8.0 % (0.0-4.0) 11.1 % (0.0-4.0) 12.3 % (0.0-4.0) Albumin 2.5 GM/DL (3.4-5.0) Calcium Level 8.1 MG/DL (8.5-10.1) 8.0 MG/DL (8.5-10.1) 8.1 MG/DL (8.5-10.1) Phosphorus Level 1.7 MG/DL (2.5-4.9) Chloride Level 111 MEQ/L (98-107) 110 MEQ/L (98-107) Eosinophils # (Auto) 0.6 TH/MM3 (0-0.4) 0.6 TH/MM3 (0-0.4) Blood Urea Nitrogen 6 MG/DL (7-18) 2 MG/DL (7-18) Potassium Level 3.4 MEQ/L (3.5-5.1) 3.3 MEQ/L (3.5-5.1) Basophils (%) (Auto) 2.3 % (0.0-2.0) PE at Discharge GENERAL: SKIN: Warm and dry. HEAD: Atraumatic. Normocephalic. EYES: Pupils equal and round. No scleral icterus. No injection or drainage. ENT: No nasal bleeding or discharge. Mucous membranes pink and moist. NECK: Trachea midline. No JVD. CARDIOVASCULAR: Regular rate and rhythm. RESPIRATORY: No accessory muscle use. Clear to auscultation. Breath sounds equal bilaterally. GASTROINTESTINAL: Abdomen soft, non-tender, nondistended. Hepatic and splenic margins not palpable. MUSCULOSKELETAL: Extremities without clubbing, cyanosis, or edema. No obvious deformities. NEUROLOGICAL: Awake and alert. No obvious cranial nerve deficits. Motor grossly within normal limits. Five out of 5 muscle strength in the arms and legs. Normal speech. PSYCHIATRIC: Appropriate mood and affect; insight and judgment normal. Hospital Course 66 Y CF, W UC, Diarrhea- dr Edd Ramos consulted. Rectal prolapse, history of HARISH: secondary to dehydration from decreased PO intake and diarrhea. Creatinine 1.84 on admission, previously 0.84 on 02/08/16, 0.69 on 04/28/17 per records. Hypokalemia- change to d5 w K Hypophosphatemia- Phosphorus 1.0. Replaced. May contribute to gut motility. Anorexia OCD DELUSIONS- psych consult Hyponatremia: Na 127 on admission, likely secondary to dehydration. Anxiety: h/o Anxiety, Ativan prn. Conjunctivitis: Patient states this is improving. Continue Cipro opth gtts. DVT Prophylaxis: SCD/Teds. Discharge Planning- BACK TO [facility] Discharge Disposition: [facility] with [facility] Discharge Instructions DIET: Follow Instructions for: As Tolerated, No Restrictions Activities you can perform: Regular-No Restrictions Follow up Referrals: PCP Follow-up - 2-[address] [facility] with DR JOSE DE JESUS RAMOS [facility] New Medications: Fluoxetine (Fluoxetine) 20 Mg Tab 20 MG PO DAILY for ocd, #30 TAB 11 Refills Loperamide (Imodium A-D) 2 Mg Capsule 2 MG PO Q6H PRN for DIARRHEA, #90 CAP 11 Refills Potassium Phosphate-Sodium Phosphate (K-Phos Neutral) 155-852-130 Mg Tab 500 MG PO DAILY for Electrolyte Replacement for 7 Days, #7 TAB 0 Refills Quetiapine (Seroquel) 300 Mg Tab 300 MG PO BID for Anxiety, #60 TAB 11 Refills Continued Medications: Acetaminophen (Tylenol) 325 Mg Tab 1000 MG PO BID PRN for PAIN, #1 TAB 0 Refills Cholestyramine (Questran) 4 Gm/Dose Powd 4 GM PO TID for Dyslipidemia, #1 CAN 0 Refills 1 level scoopful of powder contains 4 grams of cholestyramine. Diazepam (Diazepam) 10 Mg Tab 10 MG PO BID PRN for ANXIETY, TAB 0 Refills Folic Acid (Folic Acid) 0.8 Mg Tab 1000 MCG PO DAILY for Nutritional Supplement, TAB 0 Refills Mesalamine ER 24 HR (Apriso) 0.375 Gm Caper 1.5 GM PO DAILY for Ulcerative colitis, CAP 0 Refills Mirtazapine (Mirtazapine) 15 Mg Tab 15 MG PO HS for Depression Control, #30 TAB 0 Refills Ondansetron (Ondansetron) 8 Mg Tab 4 MG PO QID PRN for NAUSEA, TAB 0 Refills Sumatriptan (Sumatriptan) 25 Mg Tab 25 MG PO DAILY PRN for MIGRAINE HEADACHE, TAB 0 Refills If a satisfactory response has not been obtained at 2 hours, a second dose may be administered Discontinued Medications: Alendronate (Alendronate) 70 Mg Tab 70 MG PO Q7D for Osteporosis Treatment, #4 TAB 0 Refills Naproxen (Naproxen) 250 Mg Tab 250 MG PO BID, #60 TAB 0 Refills Quetiapine (Seroquel) 100 Mg Tab 100 MG PO TID, #60 TAB 0 Refills Sertraline (Sertraline) 50 Mg Tab 50 MG PO DAILY, #30 TAB 0 Refills Trazodone (Trazodone) 50 Mg Tab 50 MG PO HS for Control Depression, #30 TAB 0 Refills Jenaro Sanford MD May 20, 2017 09:40
--- NOTE | 2017-05-20 09:44 | HHI.FF ---
Face to Face Verification Diagnosis: (1) Nausea & vomiting (2) Hypertension (3) GERD (gastroesophageal reflux disease) (4) Migraine headache (5) Depression (emotion) (6) Teeth grinding (7) Rheumatoid arthritis (8) HARISH (acute kidney injury) (9) Hyponatremia (10) Anxiety (11) Diarrhea Physical Therapy Order: Evaluate and Treat, Improve ambulation, Strength and gait training Occupational Therapy Order: Evaluate and Treat, Improve ADL, Gross motor coordination, Fine motor coordination Speech Therapy Order: To Improve: Speech and communication skills, Cognitive skills Home Health Nursing Order: Medical education Medication education-adverse effect Nursing assessment with vital signs Home Health Aide Order: To Assist In: Bathing and personal care, cray fishing hand and meal prep Commercial Lines Manager Order: To Evaluate: Living conditions/environment, Support services Order: To Provide: Long range planning, Community services I have seen patient Elise Dunbar on 05/20/17. My clinical findings support the need for the requested home health care services because: Deconditioned w/ increased weakness Med compliance is questionable Limited ability to care for self Need for psychosocial assistance Impaired cognition/judgement High risk of falls I certify that my clinical findings support that this patient is homebound because: Impaired cognitive ability/safety Unsteady gait/balance Unsafe to leave home unassisted Need for psychosocial assistance Jenaro Pizarro MD May 20, 2017 09:44
--- NOTE | 2017-05-20 10:10 | HHI.GIFU ---
Subjective Remarks Resting in bed. Tolerated breakfast, states she is thirsty and the kitchen is not bringing her gingerale. encouraged her to ask her nurse. She states she is still passing liquid stool from the bowel prep. Objective Vitals I&O Vital Signs Date Time Temp Pulse Resp B/P (MAP) Pulse Ox O2 Delivery O2 Flow Rate FiO2 05/20/17 08:33 83 17 123/76 (92) 100 Room Air 05/20/17 08:15 98.6 82 17 127/77 (94) 99 Room Air 05/20/17 04:27 70 05/20/17 04:00 97.0 92 17 136/85 (102) 97 05/20/17 00:35 90 05/20/17 00:00 96.0 81 17 124/73 (90) 100 05/19/17 21:07 74 05/19/17 20:00 96.4 89 17 130/87 (101) 100 05/19/17 16:00 95.3 90 18 148/83 (104) 100 05/19/17 12:00 97.2 99 18 154/87 (109) 99 I/O 05/19/17 05/19/17 05/19/17 05/20/17 05/20/17 05/20/17 07:00 15:00 23:00 07:00 15:00 23:00 Intake Total 1511 ml 168 ml 2000 ml 1325 ml 600 ml Balance 1511 ml 168 ml 2000 ml 1325 ml 600 ml Intake Oral 2000 ml IV Total 1511 ml 168 ml 1325 ml Other 600 ml # Voids 13 # Bowel Movements 12 Laboratory Laboratory Tests Test 05/20/17 06:11 White Blood Count 4.7 Red Blood Count 3.00 Hemoglobin 8.9 Hematocrit 26.5 Mean Corpuscular Volume 88.3 Mean Corpuscular Hemoglobin 29.6 Mean Corpuscular Hemoglobin Concent 33.5 Red Cell Distribution Width 13.7 Platelet Count 347 Mean Platelet Volume 7.6 Neutrophils (%) (Auto) 45.5 Lymphocytes (%) (Auto) 26.9 Monocytes (%) (Auto) 13.0 Eosinophils (%) (Auto) 12.3 Basophils (%) (Auto) 2.3 Neutrophils # (Auto) 2.1 Lymphocytes # (Auto) 1.3 Monocytes # (Auto) 0.6 Eosinophils # (Auto) 0.6 Basophils # (Auto) 0.1 CBC Comment DIFF FINAL Differential Comment Blood Urea Nitrogen 2 Creatinine 0.52 Random Glucose 101 Calcium Level 8.1 Sodium Level 141 Potassium Level 3.3 Chloride Level 107 Carbon Dioxide Level 28.6 Anion Gap 5 Estimat Glomerular Filtration Rate 118 Date/Time Source Procedure Growth Status 05/15/17 21:00 Stool Stool Stool Occult Blood (CINDY) - Final HEMOCCULT NEGATIVE Complete Physical Exam HEENT: Normocephalic; atraumatic; no jaundice. CHEST: CTA CARDIAC: RRR ABDOMEN: Soft, nondistended, nontender; no hepatosplenomegaly; bowel sounds are present in all four quadrants. EXTREMITIES: Mild generalized edema. SKIN: Generalized pallor SCHOOL LUNCH MONITOR: No focal deficits; alert and oriented times three. Assessment and Plan Plan ASSESSMENT: - Diarrhea, ongoing x 3 weeks. C diff negative (05/15). Stool culture negative. Cryptosporidium and Giardia neg. Hemoccult negative. She was hospitalized recently at [facility] for the same. She was evaluated by our service at that time, and refused colonoscopy. D/W patient further evaluation with EGD/ Colonoscopy for persistent diarrhea, but she is refusing, stating that she was told by Dr. Ramos that she could not have colonoscopy secondary to rectal prolapse repair 3 years ago. S/P evaluation by Dr. Ibrahim with CRS, but patient demanded to be seen by Dr. Ramos and will not consider any further workup until she has been seen by Dr. Ramos. Records from [facility] reviewed. Celiac panel, fecal fat pending. S/P Colonoscopy (05/20/17) with Dr. Ramos, normal colonoscopy. FU with Dr. Ramos for diarrhea per CRS note. Imodium. GI will sign off at this point. - Anemia, no active bleeding noted. HH 8.9/26.5 Hemoccult negative. - HARISH, Hyponatremia, Hypokalemia, Improved. PLAN: - MUNIRA - Await Celiac panel - Await Fecal fat (qualitative) - S/P Colonoscopy with CRS - FU CRS for diarrhea - GI will sign off, as she is now followed by Dr. Ramos and is refusing EGD. - Pt seen and examined by Dr. Lewis and myself and this note is written on her behalf Aaliyah Kay May 20, 2017 10:10
--- NOTE | 2017-05-20 15:17 | PD.PSY.CON ---
Provisional Diagnosis Admission Date May 15, 2017 at 21:30 Tyler I. Adjustment disorder with depressed mood, unspecified eating disorder, history of depression and anxiety Tyler II. Deferred History of Present Illness Service Psychiatry Consult Requested By Reason for Consult Eating disorder Primary Care Physician Jenaro Pizarro MD HPI The patient is a 66-year-old woman, domiciled in a residential facility, unemployed, , with psychiatric history of anxiety and depression, OCD, unspecified eating disorder, no previous psychiatric hospitalizations, but she has been seeing in the ER before, documentation was was reviewed, no previous suicidal attempts, she is on Zoloft 50 mg, Seroquel 100 mg 3 times a day, Remeron 15 mg prescribed by PCP, admitted due to metabolic abnormalities. On psychiatric evaluation today patient is oppositional and resistant to the psychiatric interview. Patient says that she is not depressed, denies anxiety, and as stated that she is "very stable"and current psychotropic regimen. She says that she is want to go back home. Patient is having her breakfast as we talk. She denies binge and purging behavior, denies self image abnormalities, she denies suicidal and homicidal ideation, she denies visual and auditory hallucinations. Patient is oriented 3 , no attention deficit, fluctuation of consciousness. She denies the use of alcohol and illicit drugs. Review of Systems Constitutional: DENIES: Diaphoretic episodes, Fatigue, Fever, Weight gain, Weight loss, Chills, Dizziness, Change in appetite, Night Sweats Endocrine: DENIES: Abnorml menstrual pattern, Heat/cold intolerance, Polydipsia , Polyuria, Polyphagia Eyes: COMPLAINS OF: Blurred vision, Diplopia, Eye inflammation, Eye pain, Vision loss, Photosensitivity, Double Vision Ears, nose, mouth, throat: DENIES: Tinnitus, Hearing loss, Vertigo, Nasal discharge, Oral lesions, Throat pain, Hoarseness, Ear Pain, Running Nose, Epistaxis, Sinus Pain, Toothache, Odynophagia Cardiovascular: DENIES: Chest pain, Palpitations, Syncope, Dyspnea on Exertion , PND, Lower Extremity Edema, Orthopnea, Claudication Gastrointestinal: DENIES: Abdominal pain, Black stools, Bloody stools, Constipation, Diarrhea, Nausea, Vomiting, Difficulty Swallowing, Anorexia Genitourinary: DENIES: Abnormal vaginal bleeding, Dysmenorrhea, Dyspareunia, Sexual dysfunction, Urinary frequency, Urinary incontinence, Urgency, Hematuria , Dysuria, Nocturia, Vaginal discharge Musculoskeletal: DENIES: Joint pain, Muscle aches, Stiffness, Joint Swelling, Back pain, Neck pain Hematologic/lymphatic: DENIES: Bruising, Lymphadenopathy Immunologic/allergic: DENIES: Eczema, Urticaria Neurologic: DENIES: Abnormal gait, Headache, Localized weakness, Paresthesias, Seizures, Speech Problems, Tremor, Poor Balance Psychiatric: DENIES: Anxiety, Confusion, Mood changes, Depression, Hallucinations, Agitation, Suicidal Ideation, Homicidal Ideation, Delusions Past Family Social History Coded Allergies: Sulfa (Sulfonamide Antibiotics) (Unverified Allergy, Severe, Itching, 03/31) prochlorperazine (Unverified Allergy, Severe, Restlessness, 03/31/17) acetaminophen (Unverified Allergy, Mild, NAUSEA, 03/31/17) aspirin (Unverified Allergy, Mild, NAUSEA, 03/31/17) oxycodone (Unverified Allergy, Mild, NAUSEA, 03/31/17) shellfish derived (Unverified Allergy, Unknown, 03/31/17) Active Scripts Potassium Phosphate-Sodium Phosphate (K-Phos Neutral) [phone] Mg Tab, 500 MG PO DAILY for Electrolyte Replacement for 7 Days, #7 TAB 0 Refills Prov:Jenaro Pizarro MD 05/20/17 Loperamide (Imodium A-D) 2 Mg Capsule, 2 MG PO Q6H Y for DIARRHEA, #90 CAP 11 Refills Prov:Jenaro Pizarro MD 05/20/17 Fluoxetine (Fluoxetine) 20 Mg Tab, 20 MG PO DAILY for ocd, #30 TAB 11 Refills Prov:Jenaro Pizarro MD 05/20/17 Quetiapine (Seroquel) 300 Mg Tab, 300 MG PO BID for Anxiety, #60 TAB 11 Refills Prov:Jenaro Pizarro MD 05/20/17 Reported Medications Cholestyramine (Questran) 4 Gm/Dose Powd, 4 GM PO TID for Dyslipidemia, #1 CAN 0 Refills 1 level scoopful of powder contains 4 grams of cholestyramine. 05/15/17 Mesalamine ER 24 HR (Apriso) 0.375 Gm Caper, 1.5 GM PO DAILY for Ulcerative colitis, CAP 0 Refills 05/15/17 Sumatriptan (Sumatriptan) 25 Mg Tab, 25 MG PO DAILY Y for MIGRAINE HEADACHE, TAB 0 Refills If a satisfactory response has not been obtained at 2 hours, a second dose may be administered 05/15/17 Ondansetron (Ondansetron) 8 Mg Tab, 4 MG PO QID Y for NAUSEA, TAB 0 Refills 05/15/17 Mirtazapine (Mirtazapine) 15 Mg Tab, 15 MG PO HS for Depression Control, #30 TAB 0 Refills 05/15/17 Folic Acid (Folic Acid) 0.8 Mg Tab, 1000 MCG PO DAILY for Nutritional Supplement , TAB 0 Refills 05/15/17 Diazepam (Diazepam) 10 Mg Tab, 10 MG PO BID Y for ANXIETY, TAB 0 Refills 05/15/17 Acetaminophen (Tylenol) 325 Mg Tab, 1000 MG PO BID Y for PAIN, #1 TAB 0 Refills 05/15/17 Discontinued Reported Medications Sertraline (Sertraline) 50 Mg Tab, 50 MG PO DAILY, #30 TAB 0 Refills 05/15/17 Trazodone (Trazodone) 50 Mg Tab, 50 MG PO HS for Control Depression, #30 TAB 0 Refills 05/15/17 Quetiapine (Seroquel) 100 Mg Tab, 100 MG PO TID, #60 TAB 0 Refills 05/15/17 Naproxen (Naproxen) 250 Mg Tab, 250 MG PO BID, #60 TAB 0 Refills 05/15/17 Alendronate (Alendronate) 70 Mg Tab, 70 MG PO Q7D for Osteporosis Treatment, #4 TAB 0 Refills 05/15/17 Family History no psychiatric family history Social History Patient was born and raised in [facility], she lives in a residential facility, , unemployed. Physical Exam Vital Signs Vital Signs Date Time Temp Pulse Resp B/P (MAP) Pulse Ox O2 Delivery O2 Flow Rate FiO2 05/20/17 08:33 83 17 123/76 (92) 100 Room Air 05/20/17 08:15 98.6 I/O 05/20/17 05/20/17 05/21/17 08:00 16:00 00:00 Intake Total 1325 ml 600 ml Balance 1325 ml 600 ml Lab Results Test 05/20/17 06:11 White Blood Count 4.7 TH/MM3 Red Blood Count 3.00 MIL/MM3 Hemoglobin 8.9 GM/DL Hematocrit 26.5 % Mean Corpuscular Volume 88.3 FL Mean Corpuscular Hemoglobin 29.6 PG Mean Corpuscular Hemoglobin Concent 33.5 % Red Cell Distribution Width 13.7 % Platelet Count 347 TH/MM3 Mean Platelet Volume 7.6 FL Neutrophils (%) (Auto) 45.5 % Lymphocytes (%) (Auto) 26.9 % Monocytes (%) (Auto) 13.0 % Eosinophils (%) (Auto) 12.3 % Basophils (%) (Auto) 2.3 % Neutrophils # (Auto) 2.1 TH/MM3 Lymphocytes # (Auto) 1.3 TH/MM3 Monocytes # (Auto) 0.6 TH/MM3 Eosinophils # (Auto) 0.6 TH/MM3 Basophils # (Auto) 0.1 TH/MM3 CBC Comment DIFF FINAL Differential Comment Blood Urea Nitrogen 2 MG/DL Creatinine 0.52 MG/DL Random Glucose 101 MG/DL Calcium Level 8.1 MG/DL Sodium Level 141 MEQ/L Potassium Level 3.3 MEQ/L Chloride Level 107 MEQ/L Carbon Dioxide Level 28.6 MEQ/L Anion Gap 5 MEQ/L Estimat Glomerular Filtration Rate 118 ML/MIN Date/Time Source Procedure Growth Status 05/15/17 21:00 Stool Stool Stool Occult Blood (CINDY) - Final HEMOCCULT NEGATIVE Complete Mental Status Examination Appearance woman, age appearing, oppositional and poorly cooperative Speech: Unremarkable Orientation: x3 Memory: Unremarkable Thought Process: Logical Thought Content: Unremarkable Hallucination Type: None Attention and Concentration: Good Suicidal Ideation: No Previous Suicide Attempts: No Homicidal Ideation: No Previous Homicide Attempts: No Judgment: Impulsive Affect: Irritable Mood: Angry Motor Activity: Normal gait Assessment & Plan Problem List: (1) Adjustment disorder with mixed anxiety and depressed mood ICD Codes: F43.23 - Adjustment disorder with mixed anxiety and depressed mood (2) Eating disorder, unspecified ICD Codes: F50.9 - Eating disorder, unspecified Assessment & Plan: At the moment of this psychiatric evaluation the patient does not present any concerning, significant or acute evidence of depressive symptoms, anxiety, george or psychosis. She denies suicidal and homicidal ideation, she denies visual and auditory hallucinations. Patient has a documented history of anorexia, OCD, delusional thinking. However, at the moment of this evaluation due to the oppositional the patient exploration of symptoms is limited. Patient seems to be stable in current psychotropic regimen. Spoke personally with Dr. Pizarro, who confirms this information. I will suggest to switch Zoloft to Prozac, since Prozac is FDA approved for eating disorder. She does not meet criteria for psychiatric admission. Extensive support, motivation and psychoeducation provided. Consult appreciated. Assessment & Plan Estimated LOS: days Mohsen Soto MD May 20, 2017 15:17
--- NOTE | 2017-05-21 15:01 | EKG ---
Date Performed: 05/20/2017 Time Performed: 05:25:23 PTAGE: 66 years EKG: Sinus rhythm LOW QRS VOLTAGE IN PRECORDIAL LEADS (QRS DEFLECTION< 1.0 mV IN CHEST LEADS) NONSPECIFIC T-WAVE ABNOR MALITY BORDERLINE ECG PREVIOUS TRACING 02/08/2016 11.55.18 Compared to prior tracing no significant change DOCTOR: Tigre Richards Interpretating Date/Time 05/21/2017 14:59:16
== END 2017-05-20 12:01 | DRG 392 ==
LOC: NEPC 18:13 → NEDA 21:30 → N07A 23:49
PROVIDERS: ADMIT Family Medicine; ATTEND Family Medicine
PROC: 0DBE8ZX Excision of Large Intestine, Via Natural or Artificial Opening Endoscopic, Diagnostic (ICD-10-PCS; principal; 2017-05-20 07:42)
DX: R19.7 Diarrhea, unspecified (principal); N17.9 Acute kidney failure, unspecified; E87.1 Hypo-osmolality and hyponatremia; E83.39 Other disorders of phosphorus metabolism; Z68.1 Body mass index [BMI] 19.9 or less, adult; I10 Essential (primary) hypertension; F50.9 Eating disorder, unspecified; K21.9 Gastro-esophageal reflux disease without esophagitis; F41.9 Anxiety disorder, unspecified; F32.9 Major depressive disorder, single episode, unspecified; M06.9 Rheumatoid arthritis, unspecified; H10.9 Unspecified conjunctivitis; E86.0 Dehydration; F43.23 Adjustment disorder with mixed anxiety and depressed mood; D64.9 Anemia, unspecified; E87.6 Hypokalemia
CPT/HCPCS: 80048; 80053; 80069; 82272; 82306; 83605; 83690; 83735; 85025; 85610; 85730; 87328; 87329; 87493; 87506; 88305; 93005; 96361; 96374; J0744; J2060; J2405; J3480; J7030